=== PATIENT | male | born 1940 | race Caucasian/White ===

== ENCOUNTER 2022-05-25 14:11 | Inpatient (IN) ==
[2022-05-25] MEDS ORDERED: IOPAMIDOL 100 ML BOTTLE IV ONE (14:12)
[2022-05-25 14:25] LABS: POC Calcium, Ionized 1.23 (1.16-1.32); POC Creatinine 0.9 (0.6-1.2); POC Potassium 4.2 (3.3-5.1)
--- NOTE | 2022-05-25 14:39 | Emergency Department Note ---
Weakness HPI General Chief complaint: Stroke Symptoms Stated complaint: Stroke symptoms Time Seen by Provider: 05/25/22 14:28 Source: EMS Mode of arrival: EMS Limitations: altered mental status History of Present Illness HPI Narrative: Narrative: 82-year-old male with a past medical history of hypertension, neck radiculopathy on ibuprofen 1200 mg/day for 4 months presents with left facial droop, slurred speech and the left arm and leg weakness. Patient lives by himself. He was last day seen okay yesterday at 7 PM. EMT was called at 2:15 PM and patient was seen in ER at 2:24 PM. Patient's daughter stated that he has been having slurred speech for weeks and getting better on his own. In the ER patient has slurred speech but he reported appropriately to questioning. No headache dizziness chest pain abdominal pain nausea vomiting diarrhea fever chills. EKG consistent with normal sinus rhythm at 70, LAD, LAFB, Mild ST depression in 11, 111, V5-6, ST elevation in aVR. Related Data Home Medications Medication Instructions Recorded Confirmed amlodipine 10 mg tablet 10 mg PO QDAY 05/24/22 05/24/22 ibuprofen 200 mg capsule 400 mg PO Q8H 05/24/22 05/24/22 Allergies Allergy/AdvReac Type Severity Reaction Status Date / Time No Known Drug Allergies Allergy Verified 05/25/22 14:23 Review of Systems ROS ROS Narrative: Narrative: All systems ED: reviewed and negative except as stated. Constitutional: Reports as per HPI [facility] Narrative Patient History Narrative: Narrative: Medical/Surgical/Family History All Active Problems (Updated 05/25/22 @ 15:51 by Tre De Souza MD) CVA (cerebral vascular accident) (Acute) Leukocytosis (Acute) Decreased strength of upper extremity (Chronic) Medical History (Updated 05/25/22 @ 15:51 by Tre De Souza MD) Decreased strength of upper extremity Surgical History (Updated 05/24/22 @ 17:13 by Ashley Johnson) No history of previous surgery Family History (Updated 05/24/22 @ 17:13 by Ashley Johnson) Other No pertinent family history Social History Smoking Status: Never smoker Alcohol Intake Frequency: does not drink Substance Use: does not use Exam Narrative Narrative: Narrative: General Limitations: altered mental status General appearance: Present alert and other (Slurred speech, responds to questioning appropriately) Head Head: Present atraumatic, normocephalic and other (Left facial droop) Eye Eye: Present normal appearance Respiratory Respiratory: Present normal lung sounds bilaterally Cardiovascular Cardiovascular: Present regular rate, normal rhythm and normal heart sounds Adbominal Abdominal: Present soft and normal bowel sounds; Absent tenderness or organo megaly Extremities Extremities: Absent pedal edema, cyanosis or clubbing Neurological Neurological: Present alert; Absent other (Left arm and left leg weakness as compared to right side) Course Course Course Narrative: Stroke protocol was called which included CT head and CT angio of head and neck. Neurologist Dr. Pozo who felt that patient was beyond range of thrombolytic therapy. He will look at this CT scans and call back. COVID, troponin was ordered. Dr. Pozo called back and recommended that patient should be admitted for stroke work-up. Patient's high troponin is slightly high at 0.10 however T troponin is normal. Patient's WBC count is 18.8 with left shift. Lactic acid, blood culture were ordered. Chest x-ray ordered. Rocephin 1 g IV given. Will call hospitalist admit patient here. Talked to Hospitalist Dr. Rueda who accepted the patient Vital Signs Vital signs: Vital Signs Pulse Rate 65 05/25/22 14:14 Respiratory Rate 18 05/25/22 14:14 Blood Pressure 162/127 05/25/22 14:14 Pulse Oximetry (%) 97 05/25/22 14:14 Oxygen Delivery Method 05/25/22 14:14 Pulse Rate 72 05/25/22 17:16 Respiratory Rate 19 05/25/22 17:16 Blood Pressure 144/97 05/25/22 17:16 Pulse Oximetry (%) 98 05/25/22 17:16 Oxygen Delivery Method 05/25/22 14:14 [facility] MDM Narrative Medical decision making narrative: Narrative: Lab Data Result diagrams: 05/25/22 14:23 Labs: Lab Results 05/25/22 05/25/22 05/25/22 Range/Units 14:18 14:20 14:22 WBC (4.5-11.0) K/mcL RBC (4.63-6.08) M/mcL Hgb (13.7-17.5) g/dL Hct (40.1-51.0) % POC Hct 44.0 (41-55) MCV (80.0-100.0) fL MCH (26.0-34.0) pg MCHC (31.0-36.0) g/dL RDW (11.5-14.5) % Plt Count (140-440) K/mcL MPV (8.8-12.5) fL Immature Gran % (Auto) (0.0-0.5) % Neut % (Auto) (38.0-78.0) % Lymph % (Auto) (15.5-49.0) % Gonzales % (Auto) (1.0-12.0) % Eos % (Auto) (0.0-7.0) % Baso % (Auto) (0.0-2.0) % Lymph # (Auto) (1.50-4.80) K/mcL [place] # (Auto) (0.10-0.90) K/mcL Eos # (Auto) (0.00-0.70) K/mcL Baso # (Auto) (0.00-0.30) K/mcL Seg Neutrophils % (38-78) % Lymphocytes % (15-49) % Monocytes % (Manual) (1-12) % Immature Gran # (0.00-0.05) K/mcl Absolute Neutrophils (1.80-8.00) K/mcL Platelet Estimate (Normal) RBC Morphology (Normal) Anisocytosis (None Seen) POC PT (11.9-14.5) POC INR (0.8-1.2) APTT 30.5 (20.0-37.0) sec VBG Lactic Acid (0.5-2.0) mmol/L POC Sodium 140 (133-145) POC Potassium 4.2 (3.3-5.1) POC Chloride 104 (96-108) POC Total CO2 27.0 (22-30) POC BUN 23 H (6-20) POC Creatinine 0.9 (0.6-1.2) POC Glucose 113 H (70-105) POC WB Ioniz Calcium 1.23 (1.16-1.32) Total Bilirubin (0.1-1.0) mg/dL Direct Bilirubin (0-0.3) mg/dL AST (<40) U/L ALT (<40) U/L Alkaline Phosphatase (39-117) U/L Troponin T (<0.03) ng/mL Total Protein (5.9-8.4) gm/dL Albumin (3.2-5.2) gm/dL Globulin (2.2-3.7) gm/dL Urine Color Urine Appearance (Clear) Urine pH (5.0-9.0) Ur Specific [place] (1.000-1.035) Urine Protein (Negative) mg/dL Urine Glucose (UA) (Negative) mg/dL Urine Ketones (Negative) mg/dL Urine Occult Blood (Negative) kylah/mcL Urine Nitrate (Negative) Urine Bilirubin (Negative) mg/dL Urine Urobilinogen mg/dL Ur Leukocyte Esterase (Negative) /uL Urine RBC (0-1) /hpf Urine WBC (0-4) /hpf Ur Squamous Epith Cells (0-4) /hpf Urine Bacteria (0) /hpf Urine Mucus (None) /hpf Ur Culture Indicated? POC Troponin I 0.10 H (0.00-0.08) 05/25/22 05/25/22 05/25/22 Range/Units 14:22 14:22 14:22 WBC (4.5-11.0) K/mcL RBC (4.63-6.08) M/mcL Hgb (13.7-17.5) g/dL Hct (40.1-51.0) % POC Hct (41-55) MCV (80.0-100.0) fL MCH (26.0-34.0) pg MCHC (31.0-36.0) g/dL RDW (11.5-14.5) % Plt Count (140-440) K/mcL MPV (8.8-12.5) fL Immature Gran % (Auto) (0.0-0.5) % Neut % (Auto) (38.0-78.0) % Lymph % (Auto) (15.5-49.0) % Gonzales % (Auto) (1.0-12.0) % Eos % (Auto) (0.0-7.0) % Baso % (Auto) (0.0-2.0) % Lymph # (Auto) (1.50-4.80) K/mcL [place] # (Auto) (0.10-0.90) K/mcL Eos # (Auto) (0.00-0.70) K/mcL Baso # (Auto) (0.00-0.30) K/mcL Seg Neutrophils % 91 H (38-78) % Lymphocytes % 3 L (15-49) % Monocytes % (Manual) 7 (1-12) % Immature Gran # (0.00-0.05) K/mcl Absolute Neutrophils (1.80-8.00) K/mcL Platelet Estimate Decreased A (Normal) RBC Morphology Abnormal A (Normal) Anisocytosis 1+ A (None Seen) POC PT (11.9-14.5) POC INR (0.8-1.2) APTT (20.0-37.0) sec VBG Lactic Acid (0.5-2.0) mmol/L POC Sodium (133-145) POC Potassium (3.3-5.1) POC Chloride (96-108) POC Total CO2 (22-30) POC BUN (6-20) POC Creatinine (0.6-1.2) POC Glucose (70-105) POC WB Ioniz Calcium (1.16-1.32) Total Bilirubin 0.4 (0.1-1.0) mg/dL Direct Bilirubin < 0.2 (0-0.3) mg/dL AST < 5 (<40) U/L ALT < 5 (<40) U/L Alkaline Phosphatase < 5 L (39-117) U/L Troponin T 0.01 (<0.03) ng/mL Total Protein 6.0 (5.9-8.4) gm/dL Albumin < 0.2 L (3.2-5.2) gm/dL Globulin 5.8 H (2.2-3.7) gm/dL Urine Color Urine Appearance (Clear) Urine pH (5.0-9.0) Ur Specific [place] (1.000-1.035) Urine Protein (Negative) mg/dL Urine Glucose (UA) (Negative) mg/dL Urine Ketones (Negative) mg/dL Urine Occult Blood (Negative) kylah/mcL Urine Nitrate (Negative) Urine Bilirubin (Negative) mg/dL Urine Urobilinogen mg/dL Ur Leukocyte Esterase (Negative) /uL Urine RBC (0-1) /hpf Urine WBC (0-4) /hpf Ur Squamous Epith Cells (0-4) /hpf Urine Bacteria (0) /hpf Urine Mucus (None) /hpf Ur Culture Indicated? POC Troponin I (0.00-0.08) 05/25/22 05/25/22 05/25/22 Range/Units 14:23 15:06 16:00 WBC 18.8 H (4.5-11.0) K/mcL RBC 4.85 (4.63-6.08) M/mcL Hgb 14.1 (13.7-17.5) g/dL Hct 43.0 (40.1-51.0) % POC Hct (41-55) MCV 88.7 (80.0-100.0) fL MCH 29.1 (26.0-34.0) pg MCHC 32.8 (31.0-36.0) g/dL RDW 16.1 H (11.5-14.5) % Plt Count 445 H (140-440) K/mcL MPV 10.1 (8.8-12.5) fL Immature Gran % (Auto) 1.5 H (0.0-0.5) % Neut % (Auto) 82.6 H (38.0-78.0) % Lymph % (Auto) 4.9 L (15.5-49.0) % Gonzales % (Auto) 9.9 (1.0-12.0) % Eos % (Auto) 0.5 (0.0-7.0) % Baso % (Auto) 0.6 (0.0-2.0) % Lymph # (Auto) 0.93 L (1.50-4.80) K/mcL [place] # (Auto) 1.86 H (0.10-0.90) K/mcL Eos # (Auto) 0.09 (0.00-0.70) K/mcL Baso # (Auto) 0.11 (0.00-0.30) K/mcL Seg Neutrophils % (38-78) % Lymphocytes % (15-49) % Monocytes % (Manual) (1-12) % Immature Gran # 0.29 H (0.00-0.05) K/mcl Absolute Neutrophils 15.52 H (1.80-8.00) K/mcL Platelet Estimate (Normal) RBC Morphology (Normal) Anisocytosis (None Seen) POC PT 11.8 L (11.9-14.5) POC INR 1.0 (0.8-1.2) APTT (20.0-37.0) sec VBG Lactic Acid 1.2 (0.5-2.0) mmol/L POC Sodium (133-145) POC Potassium (3.3-5.1) POC Chloride (96-108) POC Total CO2 (22-30) POC BUN (6-20) POC Creatinine (0.6-1.2) POC Glucose (70-105) POC WB Ioniz Calcium (1.16-1.32) Total Bilirubin (0.1-1.0) mg/dL Direct Bilirubin (0-0.3) mg/dL AST (<40) U/L ALT (<40) U/L Alkaline Phosphatase (39-117) U/L Troponin T (<0.03) ng/mL Total Protein (5.9-8.4) gm/dL Albumin (3.2-5.2) gm/dL Globulin (2.2-3.7) gm/dL Urine Color Urine Appearance (Clear) Urine pH (5.0-9.0) Ur Specific [place] (1.000-1.035) Urine Protein (Negative) mg/dL Urine Glucose (UA) (Negative) mg/dL Urine Ketones (Negative) mg/dL Urine Occult Blood (Negative) kylah/mcL Urine Nitrate (Negative) Urine Bilirubin (Negative) mg/dL Urine Urobilinogen mg/dL Ur Leukocyte Esterase (Negative) /uL Urine RBC (0-1) /hpf Urine WBC (0-4) /hpf Ur Squamous Epith Cells (0-4) /hpf Urine Bacteria (0) /hpf Urine Mucus (None) /hpf Ur Culture Indicated? POC Troponin I (0.00-0.08) 05/25/22 Range/Units 16:24 WBC (4.5-11.0) K/mcL RBC (4.63-6.08) M/mcL Hgb (13.7-17.5) g/dL Hct (40.1-51.0) % POC Hct (41-55) MCV (80.0-100.0) fL MCH (26.0-34.0) pg MCHC (31.0-36.0) g/dL RDW (11.5-14.5) % Plt Count (140-440) K/mcL MPV (8.8-12.5) fL Immature Gran % (Auto) (0.0-0.5) % Neut % (Auto) (38.0-78.0) % Lymph % (Auto) (15.5-49.0) % Gonzales % (Auto) (1.0-12.0) % Eos % (Auto) (0.0-7.0) % Baso % (Auto) (0.0-2.0) % Lymph # (Auto) (1.50-4.80) K/mcL [place] # (Auto) (0.10-0.90) K/mcL Eos # (Auto) (0.00-0.70) K/mcL Baso # (Auto) (0.00-0.30) K/mcL Seg Neutrophils % (38-78) % Lymphocytes % (15-49) % Monocytes % (Manual) (1-12) % Immature Gran # (0.00-0.05) K/mcl Absolute Neutrophils (1.80-8.00) K/mcL Platelet Estimate (Normal) RBC Morphology (Normal) Anisocytosis (None Seen) POC PT (11.9-14.5) POC INR (0.8-1.2) APTT (20.0-37.0) sec VBG Lactic Acid (0.5-2.0) mmol/L POC Sodium (133-145) POC Potassium (3.3-5.1) POC Chloride (96-108) POC Total CO2 (22-30) POC BUN (6-20) POC Creatinine (0.6-1.2) POC Glucose (70-105) POC WB Ioniz Calcium (1.16-1.32) Total Bilirubin (0.1-1.0) mg/dL Direct Bilirubin (0-0.3) mg/dL AST (<40) U/L ALT (<40) U/L Alkaline Phosphatase (39-117) U/L Troponin T (<0.03) ng/mL Total Protein (5.9-8.4) gm/dL Albumin (3.2-5.2) gm/dL Globulin (2.2-3.7) gm/dL Urine Color Yellow Urine Appearance Sl cloudy A (Clear) Urine pH 6.0 (5.0-9.0) Ur Specific [place] 1.025 (1.000-1.035) Urine Protein 30 A (Negative) mg/dL Urine Glucose (UA) Negative (Negative) mg/dL Urine Ketones 15 A (Negative) mg/dL Urine Occult Blood Large A (Negative) kylah/mcL Urine Nitrate Negative (Negative) Urine Bilirubin Negative (Negative) mg/dL Urine Urobilinogen Normal mg/dL Ur Leukocyte Esterase Negative (Negative) /uL Urine RBC > 182 H (0-1) /hpf Urine WBC 3 (0-4) /hpf Ur Squamous Epith Cells 0 (0-4) /hpf Urine Bacteria None (0) /hpf Urine Mucus Many A (None) /hpf Ur Culture Indicated? No POC Troponin I (0.00-0.08) ED POC Tests ED POC Tests: JAMIE - SARS Antigen Negative Discharge Plan Patient/Caregiver Discharge Instructions Pt seen by [facility]NER/PA only: No Clinical Impression: CVA (cerebral vascular accident), Leukocytosis Patient Disposition: Xfer As Inpt ([facility]) Follow up with: Alejandro Carr DO [Primary Care Provider] - Prescriptions: No Action amlodipine 10 mg tablet 10 mg PO QDAY ibuprofen 200 mg capsule 400 mg PO Q8H
--- NOTE | 2022-05-25 14:41 | Cat Scan Report ---
INDICATION: Neuro Deficit/acute stroke COMPARISON: None. TECHNIQUE: Axial noncontrast-enhanced images through the brain. Sagittally and coronally reformatted images. FINDINGS: Cerebral hemispheres:No acute intracranial hemorrhage. No intra-axial hematoma. There is cerebral atrophy with enlargement superficial subarachnoid spaces and ventricles for age. There is a 5 mm right thalamic lacunar infarction. There is a 5 mm lacunar infarction within the left frontal lobe. There is white matter abnormality consistent with small vessel ischemic change. There is low density in the posterior left parietal lobe consistent with watershed type infarction. This is not acute. Examination is abnormal for age. Clinical correlation for history of hypertension or diabetes recommended. Brainstem and cerebellum:No intra-axial abnormality Extra-axial:No acute hemorrhage. No subdural or epidural hematoma. No subarachnoid hemorrhage. Basilar cisterns are normal Calvarial:No calvarial fracture. No lytic lesion Temporal bones are negative. No destructive lesions Soft tissue, orbits, sinuses:Orbits and visualized facial soft tissues and paranasal sinuses are negative IMPRESSION: 1. No acute intracranial hemorrhage 2. Right thalamic and left frontal lacunar infarctions 3. Focal low-density abnormality consistent with nonacute watershed infarction in the posterior left parietal lobe 4. Cerebral atrophy. White matter abnormality consistent with small vessel ischemic change. Clinical correlation for diabetes or hypertension recommended The exam was performed using radiation dose optimization techniques including, but not limited to, automated exposure control, adjustment of the mA and/or kV according to patient size and use of iterative reconstruction technique. Interpreted and Authenticated by: Alejandro Ramos 05/25/22
[2022-05-25 15:02] LABS: Basophils # (Auto) 0.11 K/mcL (0.00-0.30); Basophils % (Auto) 0.6 % (0.0-2.0); Eosinophils # (Auto) 0.09 K/mcL (0.00-0.70); Eosinophils % (Auto) 0.5 % (0.0-7.0); Hemoglobin 14.1 g/dL (13.7-17.5); Lymphocytes # (Auto) 0.93 K/mcL (1.50-4.80); Lymphocytes % (Auto) 4.9 % (15.5-49.0); Mean Cell Volume 88.7 fL (80.0-100.0); Mean Corpuscular HGB Conc 32.8 g/dL (31.0-36.0); Mean Platelet Volume 10.1 fL (8.8-12.5); Monocytes # (Auto) 1.86 K/mcL (0.10-0.90); Monocytes % (Auto) 9.9 % (1.0-12.0); Neutrophils % (Auto) 82.6 % (38.0-78.0); Platelet Count 445 K/mcL (140-440); RBC 4.85 M/mcL (4.63-6.08); Red Cell Distribution Width 16.1 % (11.5-14.5); WBC 18.8 K/mcL (4.5-11.0)
[2022-05-25 15:09] LABS: POC Pro Time 11.8 (11.9-14.5)
--- NOTE | 2022-05-25 15:27 | Cat Scan Report ---
INDICATION: stroke symptoms COMPARISON: Brain CT scan dated 05/25/2022 TECHNIQUE: Axial images were obtained through the upper chest, neck, and head during arterial phase. MIP and CPR reformatted images. 80ml Isovue 370 injected intravenously. FINDINGS: AORTIC ARCH:Calcified atherosclerotic plaque. Origins of the left subclavian artery, left vertebral artery, left common carotid artery, innominate artery, right common carotid artery, right subclavian artery, right vertebral artery are negative. No origin stenosis. CAROTID ARTERIES:Right: Right common carotid artery is negative. No stenosis or occlusion. Mild noncalcified plaque at the origin of the right internal carotid artery. No significant stenosis or evidence for ulceration. Right internal carotid artery is otherwise negative. No stenosis or occlusion. No fibromuscular dysplasia or dissection. Left: Left common carotid artery is negative. No stenosis or occlusion Mild calcified and noncalcified plaque at the origin of left internal carotid artery. No significant stenosis. No evidence for ulceration. Left internal carotid artery is otherwise negative. There is no stenosis or occlusion. No dissection or evidence for fibromuscular dysplasia VERTEBRAL ARTERIES:Vertebral arteries are patent without stenosis or occlusion [place]:[Cavernous and supraclinoid internal carotid arteries are negative. No significant stenosis or occlusion. M1 segments of the middle cerebral arteries and A1 segments of the anterior cerebral arteries are negative. Intracranial vertebral arteries are patent. There is focal narrowing of the mid basilar artery. There is luminal irregularity and 50% diameter stenosis. Findings may be due to atherosclerotic plaque or localized dissection. Posterior cerebral arteries and superior cerebellar arteries are negative] INTRACRANIAL CIRCULATION:No intracranial branch occlusion. No arteriovenous malformation or aneurysm No dural sinus occlusion UPPER CHEST:No pulmonary parenchymal mass or focal infiltrate. Superior mediastinum is negative. Main pulmonary artery measures 3.9 cm in cross-sectional diameter. This is enlarging consistent with pulmonary arterial hypertension. NECK:No solid or cystic soft tissue mass. No pathologic lymphadenopathy. There is multilevel degenerative disc disease BRAIN:No acute intracranial hemorrhage. No focal attenuation abnormalities or pathologic contrast enhancement. IMPRESSION: 1. Irregular abnormality in the mid basilar artery with luminal narrowing and 50% diameter stenosis. Findings there is considered to atherosclerotic disease or dissection. 2. Mild plaque in the proximal internal carotid artery bilaterally. No hemodynamically significant stenosis. There is no dissection. 3. Enlarged main pulmonary artery consistent with pulmonary arterial hypertension 4. The emergency room was called with these results, 05/25/2022, 1515 The exam was performed using radiation dose optimization techniques including, but not limited to, automated exposure control, adjustment of the mA and/or kV according to patient size and use of iterative reconstruction technique. Interpreted and Authenticated by: Alejandro Ramos 05/25/22
[2022-05-25 15:29] LABS: ALT/SGPT < 5 U/L (<40); AST/SGOT < 5 U/L (<40); Albumin < 0.2 gm/dL (3.2-5.2); Alkaline Phosphatase < 5 U/L (39-117); Bilirubin,Direct < 0.2 mg/dL (0-0.3); Bilirubin,Total 0.4 mg/dL (0.1-1.0); Globulin 5.8 gm/dL (2.2-3.7)
[2022-05-25] MEDS ORDERED: cefTRIAXone 1 GM VIAL IV ONE (15:47)
--- NOTE | 2022-05-25 16:02 | XRay Report ---
INDICATION: elevated white count TECHNIQUE: AP portable semiupright chest x-ray COMPARISON: None FINDINGS: Lungs:Lungs are negative. No focal pulmonary parenchymal infiltrate or mass Heart, vascular:No significant cardiomegaly. Pulmonary vascularity is normal. No pulmonary edema or pulmonary congestion Mediastinum, manda:No mediastinal widening. No hilar mass Pleura:No pleural fluid. No pleural-based mass or calcification Skeletal:Negative. IMPRESSION: Negative AP chest x-ray. No no focal infiltrate Interpreted and Authenticated by: Alejandro Ramos 05/25/22
--- NOTE | 2022-05-25 16:23 | Internal Med History&Physical ---
HPI History of Present Illness Patient information: Note initiated : 05/25/22 at 4:23 pm Service Date, if different from initiated Date: [] Patient: Farhad Hortno 82 y/o M admitted on for Stroke symptoms. Chief Complaint: [] History of present illness: Mr. Horton is a 82 year old M Presents the ED with left-sided weakness and left facial droop and slurred speech although sounds like the patient has had slurred speech. Last known normal at 9 AM this morning. Patient also fell out of bed this morning. Patient is a poor historian given his lack of speech and most history obtained from family and chart. Telestroke was contacted who reviewed CTA head/neck. Patient out of window and recommendation stroke to treat conservatively and continue stroke work-up.. Per the family he was complaining of some neck and arm pain for 5 months ago and he had weakness in his right hand which is improved overall but does wax and wane. Family also said that 3-4l days ago he said he had some vertigo and slurring while at [facility] and the patient is told family that he has had some slurring from time to time. CTA head and neck showed some old stroke but nothing acute. In the ED was found to be hypertensive. He also leukocytosis and an elevated BU N to creatinine ratio. Urinalysis pending. Antibiotics also given because of leukocytosis and urinalysis was ordered blood cultures. EKG sinus. Review of Systems: Pertinent positives as above except for some mild nausea. Denies headache/fever/chills/vomiting/chest or abdominal pain/cough/dyspnea/diarrhea. Remaining 10 point review of system reviewed negative PFSH PFSH All Active Problems (Updated 05/25/22 @ 15:51 by Tre De Souza MD) CVA (cerebral vascular accident) (Acute) Leukocytosis (Acute) Decreased strength of upper extremity (Chronic) Medical History (Updated 05/25/22 @ 15:51 by Tre De Souza MD) Decreased strength of upper extremity Surgical History (Updated 05/24/22 @ 17:13 by Ashley Johnson) No history of previous surgery Family History (Updated 05/24/22 @ 17:13 by Ashley Johnson) Other No pertinent family history Social History (Updated 05/24/22 @ 17:14 by Ashley Johnson) marital status: occupational status: retired smoking status: Never smoker alcohol intake frequency: does not drink substance use type: does not use MEDS/ALLERGIES Home Medications and Allergies Home Medications Medication Instructions Recorded Confirmed Type amlodipine 10 mg tablet 10 mg PO QDAY 05/24/22 05/24/22 History ibuprofen 200 mg capsule 400 mg PO Q8H 05/24/22 05/24/22 History Allergies Allergy/AdvReac Type Severity Reaction Status Date / Time No Known Drug Allergies Allergy Verified 05/25/22 14:23 EXAM Constitutional Vitals: Pulse Resp BP Pulse Ox O2 Del Method 69 14 151/85 97 05/25/22 15:46 05/25/22 15:46 05/25/22 15:46 05/25/22 15:46 05/25/22 14:14 Exam: General: Alert, Awake, No acute Distress Eyes/N/T: Patient has a conjugate gaze to the right, PERRL Head/Neck: neck supple, normocephalic atraumatic CV: RRR, No murmurs, normal s1/s2 Pulm: Clear b/l, no wheezing/rhonchi/rales Abd: soft, nontender, +BS x4 Ext: no clubbing/cyanosis/edema Neuro: Alert, left-sided hemiparesis Arm>Leg, face symmetrical, conjugate gaze to the right sensations intact b/l upper/lower, speech clear but slow to speech and difficult in expressing himself. Skin: warm/dry DATA Data Completed and Pending Labs: Labs from last 24 hours 05/25/22 05/25/22 05/25/22 16:00 15:06 14:23 WBC 18.8 H RBC 4.85 Hgb 14.1 Hct 43.0 POC Hct MCV 88.7 MCH 29.1 MCHC 32.8 RDW 16.1 H Plt Count 445 H MPV 10.1 Immature Gran % (Auto) 1.5 H Neut % (Auto) 82.6 H Lymph % (Auto) 4.9 L Milam % (Auto) 9.9 Eos % (Auto) 0.5 Baso % (Auto) 0.6 Lymph # (Auto) 0.93 L Milam # (Auto) 1.86 H Eos # (Auto) 0.09 Baso # (Auto) 0.11 Immature Gran # 0.29 H Absolute Neutrophils 15.52 H POC PT 11.8 L POC INR 1.0 APTT VBG Lactic Acid Pending POC Sodium POC Potassium POC Chloride POC Total CO2 POC BUN POC Creatinine POC Glucose POC WB Ioniz Calcium Total Bilirubin Direct Bilirubin AST ALT Alkaline Phosphatase Troponin T Total Protein Albumin Globulin POC Troponin I 05/25/22 05/25/22 05/25/22 14:22 14:22 14:22 WBC RBC Hgb Hct POC Hct MCV MCH MCHC RDW Plt Count MPV Immature Gran % (Auto) Neut % (Auto) Lymph % (Auto) Milam % (Auto) Eos % (Auto) Baso % (Auto) Lymph # (Auto) Milam # (Auto) Eos # (Auto) Baso # (Auto) Immature Gran # Absolute Neutrophils POC PT POC INR APTT 30.5 VBG Lactic Acid POC Sodium POC Potassium POC Chloride POC Total CO2 POC BUN POC Creatinine POC Glucose POC WB Ioniz Calcium Total Bilirubin 0.4 Direct Bilirubin < 0.2 AST < 5 ALT < 5 Alkaline Phosphatase < 5 L Troponin T 0.01 Total Protein 6.0 Albumin < 0.2 L Globulin 5.8 H POC Troponin I 05/25/22 05/25/22 14:20 14:18 WBC RBC Hgb Hct POC Hct 44.0 MCV MCH MCHC RDW Plt Count MPV Immature Gran % (Auto) Neut % (Auto) Lymph % (Auto) Milam % (Auto) Eos % (Auto) Baso % (Auto) Lymph # (Auto) Milam # (Auto) Eos # (Auto) Baso # (Auto) Immature Gran # Absolute Neutrophils POC PT POC INR APTT VBG Lactic Acid POC Sodium 140 POC Potassium 4.2 POC Chloride 104 POC Total CO2 27.0 POC BUN 23 H POC Creatinine 0.9 POC Glucose 113 H POC WB Ioniz Calcium 1.23 Total Bilirubin Direct Bilirubin AST ALT Alkaline Phosphatase Troponin T Total Protein Albumin Globulin POC Troponin I 0.10 H A/P Narrative A/P Narrative: A: *Stroke-like symptoms > Left hemiparesis, right conjugate gaze: -ABCD=6 -basilar artery narrowing, imaging read by stroke neurologist *HTN: on norvasc *Volume depletion: *Leukocytosis: w/u pending *chr neck pain: 6 tabs of ibuprofen per day per family P: -DAPT/Statin -IVF -Permissive hypertension 24-48 hours -hold Norvasc for now -lipid panel -echo pending -Neurochecks -UA/BC lactate pending, f/u cbc -pt/ot/ST -Home medication reconciliation -CM for placement needs -ppx: lovenox / ppi Time Spent With Patient Time: Total time spent is greater than 50% in coordination of care (as documented) at patient's floor/unit and/or counseling patient: Total time spent with greater than 50% in coordination of care (as documented) at patient's floor/unit and/or counseling patient:: Greater than 70 minutes QUALITY Stroke Symptom Onset Unknown: No
[2022-05-25] MEDS ORDERED: CLOPIDOGREL 300 MG TABLET PO ONE (16:44)
[2022-05-25] MEDS ORDERED: ASPIRIN 81 MG TAB.CHEW CHEWED ONE (16:44)
[2022-05-25 17:04] LABS: Anisocytosis 1+ (None Seen); Lymphocytes % 3 % (15-49); Monocytes % (Manual) 7 % (1-12); Platelet Estimate DECREASED (Normal); RBC Morphology ABNORMAL (Normal); Segmented Neutrophils % 91 % (38-78)
[2022-05-25 17:17] LABS: Appearance,Urine SL CLOUDY (Clear); Bilirubin,Urine NEGATIVE (Negative); Color,Urine YELLOW; Culture Indicated,Urine No; Glucose,Urine (UA) NEGATIVE (Negative); Ketones,Urine 15 mg/dL (Negative); Leukocyte Esterase,Urine NEGATIVE /uL (Negative); Mucus,Urine MANY /hpf; Nitrate,Urine NEGATIVE (Negative); Protein,Urine 30 mg/dL (Negative); Specific Gravity,Urine 1.025 (1.000-1.035); Urine Blood LARGE ery/mcL (Negative); Urine RBC > 182 /hpf (0-1); Urine Squamous Epithelial Cell 0 /hpf (0-4); Urine WBC 3 /hpf (0-4); Urobilinogen,Urine Normal
[2022-05-25] MEDS ORDERED: ASPIRIN 300 MG RECTAL SUPPOSITORY PR ONE (18:21)
[2022-05-25] MEDS ORDERED: POTASSIUM CHLORIDE 20 MEQ TABLET PO PRN ×2 (18:44)
[2022-05-25] MEDS ORDERED: IPRATROPIUM/ALBUTEROL 3 ML AMPUL.NEB NEB PRN (18:44)
[2022-05-25] MEDS ORDERED: POTASSIUM CHLORIDE 40 MEQ in DEXTROSE 5% IN WATER 500 ML IV PRN (18:44)
[2022-05-25] MEDS ORDERED: LABETALOL 5 MG/ML ML IV PRN (18:44)
[2022-05-25] MEDS ORDERED: ACETAMINOPHEN 325 MG TABLET PO PRN (18:44)
[2022-05-25] MEDS ORDERED: SENNOSIDES 1 TABLET PO PRN (18:44)
[2022-05-25] MEDS ORDERED: MAGNESIUM SULFATE 2 GM/50 ML BAG IV PRN (18:44)
[2022-05-25] MEDS ORDERED: POLYETHYLENE GLYCOL 3350 17 GM PACKET PO PRN (18:44)
[2022-05-25] MEDS ORDERED: HYDROcodone/APAP 5/325MG TABLET PO PRN (18:44)
[2022-05-25] MEDS ORDERED: ONDANSETRON 4 MG/2 ML VIAL IV PRN (18:44)
[2022-05-25 19:17] LABS: C-Reactive Protein < 0.30 mg/dL (0.03-0.80); HDL Cholesterol 32 mg/dL (>40); LDL Cholesterol,Calculated 122 mg/dL (<100); Non-HDL Cholesterol 147 mg/dL (<130); Triglycerides 128 mg/dL (<150)
[2022-05-25] MEDS: 0.9 % SODIUM CHLORIDE 10 ML SYRINGE IV SCH (20:00)
[2022-05-25] MEDS: 0.9 % SODIUM CHLORIDE 1,000 ML IV SCH (20:00)
[2022-05-25] MEDS ORDERED: PANTOPRAZOLE 40 MG VIAL IV ONE (20:03)
[2022-05-25] MEDS: PANTOPRAZOLE 40 MG VIAL IV SCH (20:12)
[2022-05-25] MEDS: DOCUSATE SODIUM 100 MG CAPSULE PO SCH (21:23)
[2022-05-25] MEDS: ATORVASTATIN 40 MG TABLET PO SCH (21:23)
[2022-05-26] MEDS: 0.9 % SODIUM CHLORIDE 10 ML SYRINGE IV SCH ×3 (06:36→22:15)
[2022-05-26] MEDS: 0.9 % SODIUM CHLORIDE 1,000 ML IV SCH (06:37)
[2022-05-26 07:59] LABS: Basophils # (Auto) 0.04 K/mcL (0.00-0.30); Basophils % (Auto) 0.4 % (0.0-2.0); Hematocrit 39.1 % (40.1-51.0); Hemoglobin 12.4 g/dL (13.7-17.5); Lymphocytes # (Auto) 1.57 K/mcL (1.50-4.80); Lymphocytes % (Auto) 15.4 % (15.5-49.0); Mean Cell Volume 90.7 fL (80.0-100.0); Mean Corpuscular HGB Conc 31.7 g/dL (31.0-36.0); Mean Platelet Volume 10.1 fL (8.8-12.5); Monocytes % (Auto) 10.8 % (1.0-12.0); Neutrophils % (Auto) 71.2 % (38.0-78.0); Platelet Count 401 K/mcL (140-440); RBC 4.31 M/mcL (4.63-6.08); Red Cell Distribution Width 16.7 % (11.5-14.5); WBC 10.2 K/mcL (4.5-11.0)
--- NOTE | 2022-05-26 08:10 | Internal Med Progress Note ---
SUBJECTIVE Subjective Patient information: Note initiated : 05/26/22 at 8:03 am Service Date, if different from initiated Date: [] Patient: Farhad Horton 82 y/o M admitted on 05/25/22 for Stroke symptoms-Stroke Acute. Chief Complaint: [] Interval history: History of present illness: Mr. Horton is a 82 year old M Presents the ED with left-sided weakness and left facial droop and slurred speech although sounds like the patient has had slurred speech. Last known normal at 9 AM this morning. Patient also fell out of bed this morning. Patient is a poor historian given his lack of speech and most history obtained from family and chart. Telestroke was contacted who reviewed CTA head/neck. Patient out of window and recommendation stroke to treat conservatively and continue stroke work-up.. Per the family he was complaining of some neck and arm pain for 5 months ago and he had weakness in his right hand which is improved overall but does wax and wane. Family also said that 3-4l days ago he said he had some vertigo and slurring while at [facility] and the patient is told family that he has had some slurring from time to time. CTA head and neck showed some old stroke but nothing acute. In the ED was found to be hypertensive. He also leukocytosis and an elevated BUN to creatinine ratio. Urinalysis pending. Antibiotics also given because of leukocytosis and urinalysis was ordered blood cultures. EKG sinus. 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 No concern from stroke neurologist for transfer. Patient today has some mild increased movement of his left arm and leg. He is speaking more but slurred. He will gazing to the right. Awaiting speech therapy evaluation. Leukocytosis resolved. Urinalysis not concerning for infection. Chest x-ray unremarkable. Continue dual antiplatelets and statin. Echo pending. PT OT. Review of Systems: denies headache/fever/chills/nausea/vomiting/chest or abdominal pain/cough/dyspnea/diarrhea. Otherwise see above. Constitutional Vitals: Vital Signs Temp Pulse Resp BP Pulse Ox O2 Del Method O2 Flow Rate 99.2 F H 60 16 119/69 97 0 05/26/22 04:01 05/26/22 06:01 05/26/22 06:01 05/26/22 06:01 05/26/22 06:01 05/26/22 06:01 05/25/22 21:01 Period Temp Pulse Resp BP Sys/Gallagher Pulse Ox O2 Del Method O2 Flow Rate Last 24 Hr 98.7 F-100.1 F 59-77 11- 119-173/69-127 96-99 Room Air-Room Air 0 Intake and Output 05/25/22 05/26/22 05/26/22 19:59 03:59 11:59 Intake Total 0 1000 Output Total 150 1 Balance -150 999 Weight 82.735 kg Intake & Output: Intake & Output 05/25/22 05/26/22 05/26/22 19:59 03:59 11:59 Intake Total 0 1000 Output Total 150 1 Balance -150 999 Weight 82.735 kg Intake: IV 1000 Sodium Chloride 0.9% 1,000 ml @ 1000 100 mls/hr IV .Q10H PAUL Rx#: [id number] Oral 0 Output: Void Amount 150 # of times incontinent of urine 1 Other: Urine Appearance Clear Urine Color Dark Yellow Urine Odor Normal Exam: General: Alert, Awake, No acute Distress Eyes/N/T: Patient has a conjugate gaze to the right, Head/Neck: neck supple, CV: RRR, No murmurs, Pulm: Clear b/l, no wheezing/rhonchi/rales Abd: soft, nontender, +BS x4 Ext: no clubbing/cyanosis/edema Neuro: Alert, left-sided hemiparesis Arm>Leg slightly improved from yesterday., face symmetrical, conjugate gaze to the right, dysarthria present. Skin: warm/dry OBJ DATA Labs CBC & Chem 7: 05/26/22 05:53 05/26/22 05:53 Labs: Abnormal Lab Results 05/26/22 05/25/22 05/25/22 05:53 18:44 16:24 WBC RBC 4.31 L Hgb 12.4 L Hct 39.1 L RDW 16.7 H Plt Count Immature Gran % (Auto) 1.2 H Neut % (Auto) Lymph % (Auto) 15.4 L Lymph # (Auto) Calhoun # (Auto) 1.10 H Seg Neutrophils % Lymphocytes % Immature Gran # 0.12 H Absolute Neutrophils Platelet Estimate RBC Morphology Anisocytosis POC PT POC BUN POC Glucose Alkaline Phosphatase Albumin Globulin LDL Cholesterol, Calc 122 H Non-HDL Cholesterol 147 H HDL Cholesterol 32 L Urine Appearance Sl cloudy A Urine Protein 30 A Urine Ketones 15 A Urine Occult Blood Large A Urine RBC > 182 H Urine Mucus Many A POC Troponin I 05/25/22 05/25/22 05/25/22 15:06 14:23 14:22 WBC 18.8 H RBC Hgb Hct RDW 16.1 H Plt Count 445 H Immature Gran % (Auto) 1.5 H Neut % (Auto) 82.6 H Lymph % (Auto) 4.9 L Lymph # (Auto) 0.93 L Calhoun # (Auto) 1.86 H Seg Neutrophils % 91 H Lymphocytes % 3 L Immature Gran # 0.29 H Absolute Neutrophils 15.52 H Platelet Estimate Decreased A RBC Morphology Abnormal A Anisocytosis 1+ A POC PT 11.8 L POC BUN POC Glucose Alkaline Phosphatase Albumin Globulin LDL Cholesterol, Calc Non-HDL Cholesterol HDL Cholesterol Urine Appearance Urine Protein Urine Ketones Urine Occult Blood Urine RBC Urine Mucus POC Troponin I 05/25/22 05/25/22 05/25/22 14:22 14:20 14:18 WBC RBC Hgb Hct RDW Plt Count Immature Gran % (Auto) Neut % (Auto) Lymph % (Auto) Lymph # (Auto) Calhoun # (Auto) Seg Neutrophils % Lymphocytes % Immature Gran # Absolute Neutrophils Platelet Estimate RBC Morphology Anisocytosis POC PT POC BUN 23 H POC Glucose 113 H Alkaline Phosphatase < 5 L Albumin < 0.2 L Globulin 5.8 H LDL Cholesterol, Calc Non-HDL Cholesterol HDL Cholesterol Urine Appearance Urine Protein Urine Ketones Urine Occult Blood Urine RBC Urine Mucus POC Troponin I 0.10 H Meds: Medications Acetaminophen (Acetaminophen 325 Mg Tablet) 650 mg PO Q6HP PRN; Protocol PRN Reason: Per Pain Protocol/Fever > 101 Hydrocodone Bitart/Acetaminophen (Hydrocodone/Apap 5/325mg Tablet) 1 tab PO Q4HP PRN PRN Reason: PAIN LEVEL 3-6 Albuterol/Ipratropium (Ipratropium/Albuterol 3 Ml Ampul.Neb) 3 ml NEB Q4HP PRN PRN Reason: Shortness Of Breath Aspirin (Aspirin 325 Mg Enteric Coated Tablet) 81 mg PO DAILY [facility] Atorvastatin Calcium (Atorvastatin 40 Mg Tablet) 80 mg PO HS PAUL Last Admin: 05/25/22 21:23 Dose: Not Given Clopidogrel Bisulfate (Clopidogrel 75 Mg Tablet) 75 mg PO DAILY [facility] Docusate Sodium (Docusate Sodium 100 Mg Capsule) 100 mg PO BID [facility] Last Admin: 05/25/22 21:23 Dose: Not Given Enoxaparin Sodium (Enoxaparin 40 Mg/0.4 Ml Syringe) 40 mg SQ DAILY [facility] Potassium Chloride 40 meq/ (Dextrose) 520 mls @ 130 mls/hr IV UD PRN PRN Reason: Potassium < 3 Magnesium Sulfate (Magnesium Sulfate) 2 gm in 50 mls @ 50 mls/hr IV UD PRN PRN Reason: Magnesium </= 1.6 Sodium Chloride (Sodium Chloride 0.9%) 1,000 mls @ 100 mls/hr IV .Q10H [facility] Stop: 05/26/22 14:43 Last Admin: 05/26/22 06:37 Dose: 100 mls/hr Labetalol HCl (Labetalol 5 Mg/Ml Ml) 0 mg IV Q2HP PRN PRN Reason: Hypertension Ondansetron HCl (Ondansetron 4 Mg/2 Ml Vial) 4 mg IV Q4HP PRN PRN Reason: Nausea And Vomiting Pantoprazole Sodium (Pantoprazole 40 Mg Vial) 40 mg IV QAMAC [facility] Last Admin: 05/25/22 20:12 Dose: 40 mg Polyethylene Glycol (Polyethylene Glycol 3350 17 Gm Packet) 17 gm PO DAILYP PRN PRN Reason: Constipation Potassium Chloride (Potassium Chloride 20 Meq Tablet) 40 meq PO UD PRN PRN Reason: Potssium is 3-3.5 Potassium Chloride (Potassium Chloride 20 Meq Tablet) 40 meq PO UD PRN PRN Reason: Potassium < 3 Senna (Sennosides 1 Tablet) 2 tab PO DAILYP PRN PRN Reason: Constipation Sodium Chloride (0.9 % Sodium Chloride 10 Ml Syringe) 10 ml IV Q8 [facility] Last Admin: 05/26/22 06:36 Dose: Not Given A/P Narrative A/P Narrative: A: *Acute CVA (Mariela right sided, small left occipital && parietal) > Left hemiparesis, right conjugate gaze: -ABCD=6 -basilar artery narrowing, imaging read by stroke neurologist *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 No bandemia, Afebrile. UA/CXR unremarkable *chr neck pain: 6 tabs of ibuprofen per day per family P: -DAPT/Statin -IVF, npo until ST eval -Permissive hypertension 24-48 hours -hold Norvasc for now -echo pending -Neurochecks -BC pending -pt/ot/ST -CM for placement needs -ppx: lovenox / ppi Time Spent With Patient Time: Total time spent is greater than 50% in coordination of care (as documented) at patient's floor/unit and/or counseling patient: Total time spent with greater than 50% in coordination of care (as documented) at patient's floor/unit and/or counseling patient:: 35 - 50 minutes QUALITY Stroke Onset of Symptoms Date: 05/25/22 Onset of Symptoms Time: 00:00 Symptom Onset Unknown: Yes VTE Deep Vein Thrombosis/Pulmonary Embolism Present on Admission: No
[2022-05-26 08:23] LABS: ALT/SGPT 15 U/L (<40); AST/SGOT 27 U/L (<40); Albumin 3.7 gm/dL (3.2-5.2); Albumin/Globulin Ratio 1.6 (1.0-2.3); Alkaline Phosphatase 139 U/L (39-117); Bilirubin,Direct < 0.2 mg/dL (0-0.3); Bilirubin,Total 0.5 mg/dL (0.1-1.0); Blood Urea Nitrogen 18 mg/dL (8-23); Calcium 8.7 mg/dL (8.6-10.4); Carbon Dioxide 22 mmol/L (22-30); Chloride 104 mmol/L (96-108); Globulin 2.3 gm/dL (2.2-3.7); Glomerular Filtration Rate 69; Glucose 98 mg/dL (70-105); Lactate Dehydrogenase 412 U/L (135-225); Phosphorous 2.7 mg/dL (2.5-4.5); Triglycerides 106 mg/dL (<150); Uric Acid 5.2 mg/dL (2.5-8.0)
[2022-05-26] MEDS: PANTOPRAZOLE 40 MG VIAL IV SCH (08:34)
[2022-05-26] MEDS: ENOXAPARIN 40 MG/0.4 ML SYRINGE SQ SCH (08:35)
[2022-05-26] MEDS ORDERED: ASPIRIN 325 MG ENTERIC COATED TABLET PO SCH (09:00)
--- NOTE | 2022-05-26 09:58 | Magnetic Resonance Report ---
INDICATION: left hemiparesis, speech TECHNIQUE: Limited brain MRI scan. Axial diffusion weighted images. Axial FLAIR sequence. COMPARISON: Previous brain CT scan and CTA dated 05/25/2022 FINDINGS: Restricted diffusion within the gordy. This is predominantly right-sided although there is probably subtle restricted diffusion in the left side of the gordy. Clinical correlation for symptoms of lateral pontine syndrome or Eve Foix syndrome recommended. 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 Areas of restricted diffusion in the left occipital temporal junction region. Scattered small foci of restricted diffusion in the left parietal lobe and mid left temporal lobe. 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 No hemorrhagic abnormality. No focal hematoma. IMPRESSION: 1. 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 This is predominantly right-sided. Clinical correlation for symptoms of lateral pontine syndrome recommended 2. Small foci of restricted diffusion in the left occipital temporal junction and left parietal lobe. There may be a small focus of restricted diffusion in the mid left temporal lobe Interpreted and Authenticated by: Alejandro Ramos 05/26/22
[2022-05-26] MEDS: DOCUSATE SODIUM 100 MG CAPSULE PO SCH ×2 (10:15→22:15)
[2022-05-26] MEDS: CLOPIDOGREL 75 MG TABLET PO SCH (12:37)
[2022-05-26] MEDS: ASPIRIN 81 MG TAB.CHEW CHEWED SCH (12:37)
[2022-05-26] MEDS: ATORVASTATIN 40 MG TABLET PO SCH (22:15)
[2022-05-27] MEDS: 0.9 % SODIUM CHLORIDE 10 ML SYRINGE IV SCH ×3 (06:00→21:40)
--- NOTE | 2022-05-27 07:48 | Internal Med Progress Note ---
SUBJECTIVE Subjective Patient information: Note initiated : 05/27/22 at 7:45 am Service Date, if different from initiated Date: [] Patient: Farhad Horton 82 y/o M admitted on 05/26/22 for Stroke symptoms-Stroke Acute. Chief Complaint: [] Interval history: History of present illness: Mr. Horton is a 82 year old M Presents the ED with left-sided weakness and left facial droop and slurred speech although sounds like the patient has had slurred speech. Last known normal at 9 AM this morning. Patient also fell out of bed this morning. Patient is a poor historian given his lack of speech and most history obtained from family and chart. Telestroke was contacted who reviewed CTA head/neck. Patient out of window and recommendation stroke to treat conservatively and continue stroke work-up.. Per the family he was complaining of some neck and arm pain for 5 months ago and he had weakness in his right hand which is improved overall but does wax and wane. Family also said that 3-4l days ago he said he had some vertigo and slurring while at [facility] and the patient is told family that he has had some slurring from time to time. CTA head and neck showed some old stroke but nothing acute. In the ED was found to be hypertensive. He also leukocytosis and an elevated BUN to creatinine ratio. Urinalysis pending. Antibiotics also given because of leukocytosis and urinalysis was ordered blood cultures. EKG sinus. 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 No concern from stroke neurologist for transfer. Patient today has some mild increased movement of his left arm and leg. He is speaking more but slurred. He will gazing to the right. Awaiting speech therapy evaluation. Leukocytosis resolved. Urinalysis not concerning for infection. Chest x-ray unremarkable. Continue dual antiplatelets and statin. Echo pending. PT OT. 05/27 Patient showing improvement today. Seen by speech therapy and put on dysphagia diet. Patient speech still little bit slurred but more clear than it has been. Moving arm and leg more. Review of Systems: denies headache/fever/chills/nausea/vomiting/chest or abdominal pain/cough/dyspnea/diarrhea. Otherwise see above. Constitutional Vitals: Vital Signs Temp Pulse Resp BP Pulse Ox O2 Del Method O2 Flow Rate 97.5 F 61 19 150/88 99 0 05/27/22 04:40 05/27/22 06:01 05/27/22 06:01 05/27/22 02:01 05/27/22 06:01 05/27/22 04:40 05/25/22 21:01 Period Temp Pulse Resp BP Sys/Gallagher Pulse Ox O2 Del Method O2 Flow Rate Last 24 Hr 97.5 F-99.0 F 54-88 06-15 133-181/72-95 95-99 Room Air-Room Air Intake and Output 05/26/22 05/27/22 05/27/22 19:59 03:59 11:59 Intake Total 1100 Output Total 101 127 Balance 999 -127 Weight 83.234 kg Intake & Output: Intake & Output 05/26/22 05/27/22 05/27/22 19:59 03:59 11:59 Intake Total 1100 Output Total 101 127 Balance 999 -127 Weight 83.234 kg Intake: IV 1000 Sodium Chloride 0.9% 1,000 ml @ 1000 100 mls/hr IV .Q10H PAUL Rx#: [id number] Oral 100 Output: Void Amount 100 125 # of times incontinent of urine 1 2 Other: Percent of Meal Consumed 50% Urine Appearance Clear Clear Urine Color Dark Yellow Dark Heather # Voids 0 # Bowel Movements 0 # of times incontinent of 0 Bowels Exam: General: Alert, Awake, No acute Distress Eyes/N/T: Patient has a conjugate gaze to the right, Head/Neck: neck supple, CV: RRR, No murmurs, Pulm: Clear b/l, no wheezing/rhonchi/rales Abd: soft, nontender, +BS x4 Ext: no clubbing/cyanosis/edema Neuro: Alert, left-sided hemiparesis Arm>Leg slightly slowly improving, face symmetrical, conjugate gaze to the right, dysarthria present. Skin: warm/dry OBJ DATA Labs CBC & Chem 7: 05/26/22 05:53 05/26/22 05:53 Labs: Abnormal Lab Results 05/26/22 05/26/22 05/25/22 05:53 05:53 18:44 WBC RBC 4.31 L Hgb 12.4 L Hct 39.1 L RDW 16.7 H Plt Count Immature Gran % (Auto) 1.2 H Neut % (Auto) Lymph % (Auto) 15.4 L Lymph # (Auto) [place] # (Auto) 1.10 H Seg Neutrophils % Lymphocytes % Immature Gran # 0.12 H Absolute Neutrophils Platelet Estimate RBC Morphology Anisocytosis POC PT POC BUN POC Glucose Alkaline Phosphatase 139 H Lactate Dehydrogenase 412 H Albumin Globulin LDL Cholesterol, Calc 122 H Non-HDL Cholesterol 147 H HDL Cholesterol 32 L Urine Appearance Urine Protein Urine Ketones Urine Occult Blood Urine RBC Urine Mucus POC Troponin I 05/25/22 05/25/22 05/25/22 16:24 15:06 14:23 WBC 18.8 H RBC Hgb Hct RDW 16.1 H Plt Count 445 H Immature Gran % (Auto) 1.5 H Neut % (Auto) 82.6 H Lymph % (Auto) 4.9 L Lymph # (Auto) 0.93 L [place] # (Auto) 1.86 H Seg Neutrophils % Lymphocytes % Immature Gran # 0.29 H Absolute Neutrophils 15.52 H Platelet Estimate RBC Morphology Anisocytosis POC PT 11.8 L POC BUN POC Glucose Alkaline Phosphatase Lactate Dehydrogenase Albumin Globulin LDL Cholesterol, Calc Non-HDL Cholesterol HDL Cholesterol Urine Appearance Sl cloudy A Urine Protein 30 A Urine Ketones 15 A Urine Occult Blood Large A Urine RBC > 182 H Urine Mucus Many A POC Troponin I 05/25/22 05/25/22 05/25/22 14:22 14:22 14:20 WBC RBC Hgb Hct RDW Plt Count Immature Gran % (Auto) Neut % (Auto) Lymph % (Auto) Lymph # (Auto) [place] # (Auto) Seg Neutrophils % 91 H Lymphocytes % 3 L Immature Gran # Absolute Neutrophils Platelet Estimate Decreased A RBC Morphology Abnormal A Anisocytosis 1+ A POC PT POC BUN 23 H POC Glucose 113 H Alkaline Phosphatase < 5 L Lactate Dehydrogenase Albumin < 0.2 L Globulin 5.8 H LDL Cholesterol, Calc Non-HDL Cholesterol HDL Cholesterol Urine Appearance Urine Protein Urine Ketones Urine Occult Blood Urine RBC Urine Mucus POC Troponin I 05/25/22 14:18 WBC RBC Hgb Hct RDW Plt Count Immature Gran % (Auto) Neut % (Auto) Lymph % (Auto) Lymph # (Auto) [place] # (Auto) Seg Neutrophils % Lymphocytes % Immature Gran # Absolute Neutrophils Platelet Estimate RBC Morphology Anisocytosis POC PT POC BUN POC Glucose Alkaline Phosphatase Lactate Dehydrogenase Albumin Globulin LDL Cholesterol, Calc Non-HDL Cholesterol HDL Cholesterol Urine Appearance Urine Protein Urine Ketones Urine Occult Blood Urine RBC Urine Mucus POC Troponin I 0.10 H Meds: Medications Acetaminophen (Acetaminophen 325 Mg Tablet) 650 mg PO Q6HP PRN; Protocol PRN Reason: Per Pain Protocol/Fever > 101 Hydrocodone Bitart/Acetaminophen (Hydrocodone/Apap 5/325mg Tablet) 1 tab PO Q4HP PRN PRN Reason: PAIN LEVEL 3-6 Albuterol/Ipratropium (Ipratropium/Albuterol 3 Ml Ampul.Neb) 3 ml NEB Q4HP PRN PRN Reason: Shortness Of Breath Aspirin (Aspirin 81 Mg Tab.Chew) 81 mg CHEWED DAILY [facility] Last Admin: 05/26/22 12:37 Dose: 81 mg Atorvastatin Calcium (Atorvastatin 40 Mg Tablet) 80 mg PO HS [facility] Last Admin: 05/26/22 22:15 Dose: 80 mg Clopidogrel Bisulfate (Clopidogrel 75 Mg Tablet) 75 mg PO DAILY [facility] Last Admin: 05/26/22 12:37 Dose: 75 mg Docusate Sodium (Docusate Sodium 100 Mg Capsule) 100 mg PO BID [facility] Last Admin: 05/26/22 22:15 Dose: 100 mg Enoxaparin Sodium (Enoxaparin 40 Mg/0.4 Ml Syringe) 40 mg SQ DAILY [facility] Last Admin: 05/26/22 08:35 Dose: 40 mg Potassium Chloride 40 meq/ (Dextrose) 520 mls @ 130 mls/hr IV UD PRN PRN Reason: Potassium < 3 Magnesium Sulfate (Magnesium Sulfate) 2 gm in 50 mls @ 50 mls/hr IV UD PRN PRN Reason: Magnesium </= 1.6 Labetalol HCl (Labetalol 5 Mg/Ml Ml) 0 mg IV Q2HP PRN PRN Reason: Hypertension Ondansetron HCl (Ondansetron 4 Mg/2 Ml Vial) 4 mg IV Q4HP PRN PRN Reason: Nausea And Vomiting Pantoprazole Sodium (Pantoprazole 40 Mg Vial) 40 mg IV QAMAC [facility] Last Admin: 05/26/22 08:34 Dose: 40 mg Polyethylene Glycol (Polyethylene Glycol 3350 17 Gm Packet) 17 gm PO DAILYP PRN PRN Reason: Constipation Potassium Chloride (Potassium Chloride 20 Meq Tablet) 40 meq PO UD PRN PRN Reason: Potssium is 3-3.5 Potassium Chloride (Potassium Chloride 20 Meq Tablet) 40 meq PO UD PRN PRN Reason: Potassium < 3 Senna (Sennosides 1 Tablet) 2 tab PO DAILYP PRN PRN Reason: Constipation Sodium Chloride (0.9 % Sodium Chloride 10 Ml Syringe) 10 ml IV Q8 PAUL Last Admin: 05/27/22 06:00 Dose: 10 ml A/P Narrative A/P Narrative: A: *Acute CVA (Mariela right sided, small left occipital && parietal) > Left hemipa resis, right conjugate gaze: -ABCD=6 -basilar artery narrowing, imaging read by stroke neurologist -echo no thrombus, normal sinus ekg *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 No bandemia, Afebrile. UA/CXR unremarkable *chr neck pain: 6 tabs of ibuprofen per day per family P: -DAPT/Statin -dysphagia diet per ST -Permissive hypertension 24-48 hours -hold Norvasc for now, home meds clarified -Neurochecks -BC pending -pt/ot/ST -CM for placement needs -ppx: lovenox / ppi Time Spent With Patient Time: Total time spent is greater than 50% in coordination of care (as documented) at patient's floor/unit and/or counseling patient: Total time spent with greater than 50% in coordination of care (as documented) at patient's floor/unit and/or counseling patient:: 35 - 50 minutes QUALITY Stroke Onset of Symptoms Date: 05/25/22 Onset of Symptoms Time: 00:00 Symptom Onset Unknown: Yes VTE Deep Vein Thrombosis/Pulmonary Embolism Present on Admission: No
[2022-05-27] MEDS: PANTOPRAZOLE 40 MG VIAL IV SCH (08:09)
[2022-05-27] MEDS: ENOXAPARIN 40 MG/0.4 ML SYRINGE SQ SCH (08:29)
[2022-05-27] MEDS: CLOPIDOGREL 75 MG TABLET PO SCH (08:29)
[2022-05-27] MEDS: DOCUSATE SODIUM 100 MG CAPSULE PO SCH ×3 (08:29→21:40)
[2022-05-27] MEDS: ASPIRIN 81 MG TAB.CHEW CHEWED SCH (08:29)
--- NOTE | 2022-05-27 12:30 | Discharge Summary ---
Discharge Provider Provider IMPORTANT FOLLOW-UP INFORMATION FOR PCP: Patient information: Note initiated : 05/27/22 at 12:28 pm Service Date, if different from initiated Date: [] Patient: Farhad Horton 82 y/o M admitted on 05/26/22 for Stroke symptoms-Stroke Acute. Chief Complaint: [] Date of admission: 05/26/22 11:27 Discharge date: 05/29/22 Primary care physician: Alejandro Carr DO Consults: 05/25/22 Consult to Physician [CONS] Stat Comment: Consulting Provider: Miguel Martins Reason For Exam: Physician to Consult 05/25/22 14:19 Consult to Physician [CONS] Stat Comment: Consulting Provider: Telestroke-Sylvia Reason For Exam: Physician to Consult 05/27/22 10:25 Consult to Physician [CONS] Routine Comment: RHN referral Consulting Provider: Leland Abreu Reason For Exam: Physician to Consult COURSE Hospital Course Hospital course: History of present illness: Mr. Horton is a 82 year old M Presents the ED with left-sided weakness and left facial droop and slurred speech although sounds like the patient has had slurred speech. Last known normal at 9 AM this morning. Patient also fell out of bed this morning. Patient is a poor historian given his lack of speech and most history obtained from family and chart. Telestroke was contacted who reviewed CTA head/neck. Patient out of window and recommendation stroke to treat conservatively and continue stroke work-up.. Per the family he was complaining of some neck and arm pain for 5 months ago and he had weakness in his right hand which is improved overall but does wax and wane. Family also said that 3-4l days ago he said he had some vertigo and slurring while at [facility] and the patient is told family that he has had some slurring from time to time. CTA head and neck showed some old stroke but nothing acute. In the ED was found to be hypertensive. He also leukocytosis and an elevated BUN to creatinine ratio. Urinalysis pending. Antibiotics also given because of leukocytosis and urinalysis was ordered blood cultures. EKG sinus. 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 No concern from stroke neurologist for transfer. Patient today has some mild increased movement of his left arm and leg. He is speaking more but slurred. He will gazing to the right. Awaiting speech therapy evaluation. Leukocytosis resolved. Urinalysis not concerning for infection. Chest x-ray unremarkable. Continue dual antiplatelets and statin. Echo pending. PT OT. 05/27 Patient showing improvement today. Seen by speech therapy and put on dysphagia diet. Patient speech still little bit slurred but more clear than it has been. Moving arm and leg more. 05/28 Patient seems to feeling better. More positive and is seeing some slow gradual improvements. At bedside always, very supportive. Physical therapy to get patient out of bed today. 05/29 No overnight event or new complaints. Seen by physical therapy yesterday. Stable for discharge to [facility] today. 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 noted on initial imaging *HTN: on norvasc *Volume depletion: P: -DAPT/Statin -dysphagia diet per Discharge diagnosis: Acute CVA with left hemiparesis and gaze abnormality Secondary discharge diagnosis: History of CVA hypertension Time Spent with Patient Time attestation: Total time spent providing and/or coordinating discharge services: Time spent: Greater than 30 minutes EXAM Constitutional Vitals: Temp Pulse Resp BP Pulse Ox O2 Del Method O2 Flow Rate 98.5 F 61 16 150/84 98 0 05/27/22 08:46 05/27/22 10:16 05/27/22 10:16 05/27/22 10:16 05/27/22 10:16 05/27/22 10:16 05/25/22 21:01 Discharge Data Data Completed and Pending Labs on day of discharge: Preliminary micro results at discharge 05/25/22 16:29 Blood Culture - Preliminary Blood 05/25/22 16:25 Blood Culture - Preliminary Blood Discharge Plan Patient/Caregiver Discharge Instructions Activity: increase activity as tolerated Diet: Dysphagia Level 4 Pureed Foods Prescriptions: New Aspirin 81 mg PO DAILY Qty: 60 0RF atorvastatin 40 mg Tablet 80 mg PO HS Qty: 60 0RF clopidogrel 75 mg Tablet 75 mg PO DAILY Qty: 28 0RF Continued amlodipine 10 mg tablet 10 mg PO QDAY Discontinued ibuprofen 200 mg capsule 400 mg PO Q8H Follow Up Plan Follow up with: Alejandro Carr DO [Primary Care Provider] - Patient Disposition: Xfer SNF Prognosis: Fair Rehab Potential: Fair I certify that the patient requires SNF services: Yes Overall status at discharge: patient is not back to baseline Discharge Orders: Discharge Order (Routine); Ordered 05/29/22 Ordered By: Miguel Martins [facility] VTE Deep Vein Thrombosis/Pulmonary Embolism Present on Admission: No
[2022-05-27] MEDS: ATORVASTATIN 40 MG TABLET PO SCH (21:40)
[2022-05-28] MEDS: 0.9 % SODIUM CHLORIDE 10 ML SYRINGE IV SCH ×3 (06:01→21:25)
--- NOTE | 2022-05-28 08:04 | Internal Med Progress Note ---
SUBJECTIVE Subjective Patient information: Note initiated : 05/28/22 at 8:03 am Service Date, if different from initiated Date: [] Patient: Farhad Horton 82 y/o M admitted on 05/26/22 for Stroke symptoms-Stroke Acute. Chief Complaint: [] Interval history: History of present illness: Mr. Horton is a 82 year old M Presents the ED with left-sided weakness and left facial droop and slurred speech although sounds like the patient has had slurred speech. Last known normal at 9 AM this morning. Patient also fell out of bed this morning. Patient is a poor historian given his lack of speech and most history obtained from family and chart. Telestroke was contacted who reviewed CTA head/neck. Patient out of window and recommendation stroke to treat conservatively and continue stroke work-up.. Per the family he was complaining of some neck and arm pain for 5 months ago and he had weakness in his right hand which is improved overall but does wax and wane. Family also said that 3-4l days ago he said he had some vertigo and slurring while at [facility] and the patient is told family that he has had some slurring from time to time. CTA head and neck showed some old stroke but nothing acute. In the ED was found to be hypertensive. He also leukocytosis and an elevated BUN to creatinine ratio. Urinalysis pending. Antibiotics also given because of leukocytosis and urinalysis was ordered blood cultures. EKG sinus. 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 No concern from stroke neurologist for transfer. Patient today has some mild increased movement of his left arm and leg. He is speaking more but slurred. He will gazing to the right. Awaiting speech therapy evaluation. Leukocytosis resolved. Urinalysis not concerning for infection. Chest x-ray unremarkable. Continue dual antiplatelets and statin. Echo pending. PT OT. 05/27 Patient showing improvement today. Seen by speech therapy and put on dysphagia diet. Patient speech still little bit slurred but more clear than it has been. Moving arm and leg more. 05/28 Patient seems to feeling better. More positive and is seeing some slow gradual improvements. At bedside always, very supportive. Physical therapy to get patient out of bed today. Review of Systems: denies headache/fever/chills/nausea/vomiting/chest or abdominal pain/cough/dyspnea/diarrhea. Otherwise see above. Constitutional Vitals: Vital Signs Temp Pulse Resp BP Pulse Ox O2 Del Method O2 Flow Rate 98.0 F 59 L 14 161/75 99 0 05/28/22 04:01 05/28/22 06:01 05/28/22 06:01 05/28/22 06:01 05/28/22 06:01 05/28/22 06:01 05/25/22 21:01 Period Temp Pulse Resp BP Sys/Gallagher Pulse Ox O2 Del Method O2 Flow Rate Last 24 Hr 97.6 F-98.9 F 52-64 13-20 138-191/69-95 95-100 Room Air-Room Air Intake and Output 05/27/22 05/28/22 05/28/22 19:59 03:59 11:59 Intake Total 120 Output Total 101 2 Balance 19 -2 Weight 83.234 kg 82.055 kg Intake & Output: Intake & Output 05/27/22 05/28/22 05/28/22 19:59 03:59 11:59 Intake Total 120 Output Total 101 2 Balance 19 -2 Weight 83.234 kg 82.055 kg Intake: Oral 120 Output: Void Amount 100 # of times incontinent of urine 1 2 Other: Meal Lunch Percent of Meal Consumed 25% Feeding Ability Total Assistance Urine Appearance Clear Urine Color Bright Yellow Urine Odor Normal # Voids 0 # Bowel Movements 0 # of times incontinent of 0 Bowels Exam: General: Alert, Awake, No acute Distress Eyes/N/T: Patient has a conjugate gaze to the right improving Head/Neck: neck supple, CV: RRR, No murmurs, Pulm: Clear b/l, no wheezing/rhonchi/rales Abd: soft, nontender, +BS x4 Ext: no clubbing/cyanosis/edema Neuro: Alert, left-sided hemiparesis Arm>Leg slowly improving, conjugate gaze to the right improving, dysarthria present. Skin: warm/dry OBJ DATA Labs CBC & Chem 7: 05/26/22 05:53 05/26/22 05:53 Labs: Abnormal Lab Results 05/26/22 05/26/22 05/25/22 05:53 05:53 18:44 WBC RBC 4.31 L Hgb 12.4 L Hct 39.1 L RDW 16.7 H Plt Count Immature Gran % (Auto) 1.2 H Neut % (Auto) Lymph % (Auto) 15.4 L Lymph # (Auto) [place] # (Auto) 1.10 H Seg Neutrophils % Lymphocytes % Immature Gran # 0.12 H Absolute Neutrophils Platelet Estimate RBC Morphology Anisocytosis POC PT POC BUN POC Glucose Alkaline Phosphatase 139 H Lactate Dehydrogenase 412 H Albumin Globulin LDL Cholesterol, Calc 122 H Non-HDL Cholesterol 147 H HDL Cholesterol 32 L Urine Appearance Urine Protein Urine Ketones Urine Occult Blood Urine RBC Urine Mucus POC Troponin I 05/25/22 05/25/22 05/25/22 16:24 15:06 14:23 WBC 18.8 H RBC Hgb Hct RDW 16.1 H Plt Count 445 H Immature Gran % (Auto) 1.5 H Neut % (Auto) 82.6 H Lymph % (Auto) 4.9 L Lymph # (Auto) 0.93 L [place] # (Auto) 1.86 H Seg Neutrophils % Lymphocytes % Immature Gran # 0.29 H Absolute Neutrophils 15.52 H Platelet Estimate RBC Morphology Anisocytosis POC PT 11.8 L POC BUN POC Glucose Alkaline Phosphatase Lactate Dehydrogenase Albumin Globulin LDL Cholesterol, Calc Non-HDL Cholesterol HDL Cholesterol Urine Appearance Sl cloudy A Urine Protein 30 A Urine Ketones 15 A Urine Occult Blood Large A Urine RBC > 182 H Urine Mucus Many A POC Troponin I 05/25/22 05/25/22 05/25/22 14:22 14:22 14:20 WBC RBC Hgb Hct RDW Plt Count Immature Gran % (Auto) Neut % (Auto) Lymph % (Auto) Lymph # (Auto) [place] # (Auto) Seg Neutrophils % 91 H Lymphocytes % 3 L Immature Gran # Absolute Neutrophils Platelet Estimate Decreased A RBC Morphology Abnormal A Anisocytosis 1+ A POC PT POC BUN 23 H POC Glucose 113 H Alkaline Phosphatase < 5 L Lactate Dehydrogenase Albumin < 0.2 L Globulin 5.8 H LDL Cholesterol, Calc Non-HDL Cholesterol HDL Cholesterol Urine Appearance Urine Protein Urine Ketones Urine Occult Blood Urine RBC Urine Mucus POC Troponin I 05/25/22 14:18 WBC RBC Hgb Hct RDW Plt Count Immature Gran % (Auto) Neut % (Auto) Lymph % (Auto) Lymph # (Auto) [place] # (Auto) Seg Neutrophils % Lymphocytes % Immature Gran # Absolute Neutrophils Platelet Estimate RBC Morphology Anisocytosis POC PT POC BUN POC Glucose Alkaline Phosphatase Lactate Dehydrogenase Albumin Globulin LDL Cholesterol, Calc Non-HDL Cholesterol HDL Cholesterol Urine Appearance Urine Protein Urine Ketones Urine Occult Blood Urine RBC Urine Mucus POC Troponin I 0.10 H Meds: Medications Acetaminophen (Acetaminophen 325 Mg Tablet) 650 mg PO Q6HP PRN; Protocol PRN Reason: Per Pain Protocol/Fever > 101 Hydrocodone Bitart/Acetaminophen (Hydrocodone/Apap 5/325mg Tablet) 1 tab PO Q4HP PRN PRN Reason: PAIN LEVEL 3-6 Albuterol/Ipratropium (Ipratropium/Albuterol 3 Ml Ampul.Neb) 3 ml NEB Q4HP PRN PRN Reason: Shortness Of Breath Aspirin (Aspirin 81 Mg Tab.Chew) 81 mg CHEWED DAILY [facility] Last Admin: 05/27/22 08:29 Dose: 81 mg Atorvastatin Calcium (Atorvastatin 40 Mg Tablet) 80 mg PO HS [facility] Last Admin: 05/27/22 21:40 Dose: 80 mg Clopidogrel Bisulfate (Clopidogrel 75 Mg Tablet) 75 mg PO DAILY [facility] Last Admin: 05/27/22 08:29 Dose: 75 mg Docusate Sodium (Docusate Sodium 100 Mg Capsule) 100 mg PO BID [facility] Last Admin: 05/27/22 21:40 Dose: 100 mg Enoxaparin Sodium (Enoxaparin 40 Mg/0.4 Ml Syringe) 40 mg SQ DAILY [facility] Last Admin: 05/27/22 08:29 Dose: 40 mg Potassium Chloride 40 meq/ (Dextrose) 520 mls @ 130 mls/hr IV UD PRN PRN Reason: Potassium < 3 Magnesium Sulfate (Magnesium Sulfate) 2 gm in 50 mls @ 50 mls/hr IV UD PRN PRN Reason: Magnesium </= 1.6 Labetalol HCl (Labetalol 5 Mg/Ml Ml) 0 mg IV Q2HP PRN PRN Reason: Hypertension Ondansetron HCl (Ondansetron 4 Mg/2 Ml Vial) 4 mg IV Q4HP PRN PRN Reason: Nausea And Vomiting Pantoprazole Sodium (Pantoprazole 40 Mg Vial) 40 mg IV QAMAC [facility] Last Admin: 05/27/22 08:09 Dose: 40 mg Polyethylene Glycol (Polyethylene Glycol 3350 17 Gm Packet) 17 gm PO DAILYP PRN PRN Reason: Constipation Potassium Chloride (Potassium Chloride 20 Meq Tablet) 40 meq PO UD PRN PRN Reason: Potssium is 3-3.5 Potassium Chloride (Potassium Chloride 20 Meq Tablet) 40 meq PO UD PRN PRN Reason: Potassium < 3 Senna (Sennosides 1 Tablet) 2 tab PO DAILYP PRN PRN Reason: Constipation Sodium Chloride (0.9 % Sodium Chloride 10 Ml Syringe) 10 ml IV Q8 PAUL Last Admin: 05/28/22 06:01 Dose: 10 ml A/P Narrative A/P Narrative: A: *Acute CVA (Mariela right sided, small left occipital && parietal) > Left hemiparesis, right conjugate gaze: -ABCD=6 -basilar artery narrowing, imaging read by stroke neurologist -echo no thrombus, normal sinus ekg *h/o CVA: Old infarcts noted on initial imaging *[facility] *Volume depletion: improving *Leukocytosis: resolved, no infectious source found, likely reactive. No bandemia, Afebrile. UA/CXR unremarkable. BC neg *chr neck pain: 6 tabs of ibuprofen per day per family P: -DAPT/Statin -dysphagia diet per ST -starting home [facility] -Neurochecks -pt/ot/ST -CM for placement needs -ppx: lovenox / ppi Time Spent With Patient Time: Total time spent is greater than 50% in coordination of care (as documented) at patient's floor/unit and/or counseling patient: Total time spent with greater than 50% in coordination of care (as documented) at patient's floor/unit and/or counseling patient:: 35 - 50 minutes QUALITY Stroke Onset of Symptoms Date: 05/25/22 Onset of Symptoms Time: 00:00 Symptom Onset Unknown: Yes VTE Deep Vein Thrombosis/Pulmonary Embolism Present on Admission: No
[2022-05-28] MEDS: PANTOPRAZOLE 40 MG VIAL IV SCH (08:35)
[2022-05-28] MEDS: DOCUSATE SODIUM 100 MG CAPSULE PO SCH ×2 (08:35→21:25)
[2022-05-28] MEDS: ASPIRIN 81 MG TAB.CHEW CHEWED SCH (08:35)
[2022-05-28] MEDS: ENOXAPARIN 40 MG/0.4 ML SYRINGE SQ SCH (08:35)
[2022-05-28] MEDS: CLOPIDOGREL 75 MG TABLET PO SCH (08:35)
[2022-05-28] MEDS ORDERED: amLODIPine 5 MG TABLET PO SCH (09:00)
[2022-05-28] MEDS ORDERED: amLODIPine 5 MG TABLET PO ONE (09:45)
--- NOTE | 2022-05-28 11:30 | EKG ---
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
[2022-05-28] MEDS: ATORVASTATIN 40 MG TABLET PO SCH (21:25)
[2022-05-29] MEDS: 0.9 % SODIUM CHLORIDE 10 ML SYRINGE IV SCH ×2 (05:54→14:18)
--- NOTE | 2022-05-29 08:10 | Internal Med Progress Note ---
SUBJECTIVE Subjective Patient information: Note initiated : 05/29/22 at 8:09 am Service Date, if different from initiated Date: [] Patient: Farhad Horton 82 y/o M admitted on 05/26/22 for Stroke symptoms-Stroke Acute. Chief Complaint: [] Interval history: History of present illness: Mr. Horton is a 82 year old M Presents the ED with left-sided weakness and left facial droop and slurred speech although sounds like the patient has had slurred speech. Last known normal at 9 AM this morning. Patient also fell out of bed this morning. Patient is a poor historian given his lack of speech and most history obtained from family and chart. Telestroke was contacted who reviewed CTA head/neck. Patient out of window and recommendation stroke to treat conservatively and continue stroke work-up.. Per the family he was complaining of some neck and arm pain for 5 months ago and he had weakness in his right hand which is improved overall but does wax and wane. Family also said that 3-4l days ago he said he had some vertigo and slurring while at [facility] and the patient is told family that he has had some slurring from time to time. CTA head and neck showed some old stroke but nothing acute. In the ED was found to be hypertensive. He also leukocytosis and an elevated BUN to creatinine ratio. Urinalysis pending. Antibiotics also given because of leukocytosis and urinalysis was ordered blood cultures. EKG sinus. 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 No concern from stroke neurologist for transfer. Patient today has some mild increased movement of his left arm and leg. He is speaking more but slurred. He will gazing to the right. Awaiting speech therapy evaluation. Leukocytosis resolved. Urinalysis not concerning for infection. Chest x-ray unremarkable. Continue dual antiplatelets and statin. Echo pending. PT OT. 05/27 Patient showing improvement today. Seen by speech therapy and put on dysphagia diet. Patient speech still little bit slurred but more clear than it has been. Moving arm and leg more. 05/28 Patient seems to feeling better. More positive and is seeing some slow gradual improvements. At bedside always, very supportive. Physical therapy to get patient out of bed today. Review of Systems: denies headache/fever/chills/nausea/vomiting/chest or abdominal pain/cough/dyspnea/diarrhea. Otherwise see above. Constitutional Vitals: Vital Signs Temp Pulse Resp BP Pulse Ox O2 Del Method O2 Flow Rate 98.7 F 60 15 130/78 95 0 05/29/22 08:08 05/29/22 08:08 05/29/22 08:08 05/29/22 08:08 05/29/22 08:08 05/29/22 05:00 05/25/22 21:01 Period Temp Pulse Resp BP Sys/Gallagher Pulse Ox O2 Del Method O2 Flow Rate Last 24 Hr 97.6 F-98.9 F 60-69 - 113-151/71-94 95-98 Room Air-Room Air Intake and Output 05/28/22 05/29/22 05/29/22 19:59 03:59 11:59 Intake Total 240 240 Output Total 3 1 1 Balance 237 239 -1 Weight 83.098 kg Intake & Output: Intake & Output 05/28/22 05/29/22 05/29/22 19:59 03:59 11:59 Intake Total 240 240 Output Total 3 1 1 Balance 237 239 -1 Weight 83.098 kg Intake: Oral 240 240 Output: # of times incontinent of urine 3 1 1 Other: Meal Dinner Percent of Meal Consumed 50% Feeding Ability Total Assistance # Voids 1 # Bowel Movements 0 # of times incontinent of 0 Bowels Exam: General: Alert, Awake, No acute Distress Eyes/N/T: Patient has a conjugate gaze to the right improving Head/Neck: neck supple, CV: RRR, No murmurs, Pulm: Clear b/l, no wheezing/rhonchi/rales Abd: soft, nontender, +BS x4 Ext: no clubbing/cyanosis/edema Neuro: Alert, left-sided hemiparesis Arm>Leg slowly improving, conjugate gaze to the right improving, dysarthria present. Skin: warm/dry OBJ DATA Labs CBC & Chem 7: 05/26/22 05:53 05/26/22 05:53 Labs: Abnormal Lab Results 05/26/22 05:53 Alkaline Phosphatase 139 H Lactate Dehydrogenase 412 H Meds: Medications Acetaminophen (Acetaminophen 325 Mg Tablet) 650 mg PO Q6HP PRN; Protocol PRN Reason: Per Pain Protocol/Fever > 101 Hydrocodone Bitart/Acetaminophen (Hydrocodone/Apap 5/325mg Tablet) 1 tab PO Q4HP PRN PRN Reason: PAIN LEVEL 3-6 Albuterol/Ipratropium (Ipratropium/Albuterol 3 Ml Ampul.Neb) 3 ml NEB Q4HP PRN PRN Reason: Shortness Of Breath Amlodipine Besylate (Amlodipine 10 Mg Tablet) 10 mg PO DAILY [facility] Aspirin (Aspirin 81 Mg Tab.Chew) 81 mg CHEWED DAILY [facility] Last Admin: 05/28/22 08:35 Dose: 81 mg Atorvastatin Calcium (Atorvastatin 40 Mg Tablet) 80 mg PO HS [facility] Last Admin: 05/28/22 21:25 Dose: 80 mg Clopidogrel Bisulfate (Clopidogrel 75 Mg Tablet) 75 mg PO DAILY [facility] Last Admin: 05/28/22 08:35 Dose: 75 mg Docusate Sodium (Docusate Sodium 100 Mg Capsule) 100 mg PO BID [facility] Last Admin: 05/28/22 21:25 Dose: 100 mg Enoxaparin Sodium (Enoxaparin 40 Mg/0.4 Ml Syringe) 40 mg SQ DAILY [facility] Last Admin: 05/28/22 08:35 Dose: 40 mg Potassium Chloride 40 meq/ (Dextrose) 520 mls @ 130 mls/hr IV UD PRN PRN Reason: Potassium < 3 Magnesium Sulfate (Magnesium Sulfate) 2 gm in 50 mls @ 50 mls/hr IV UD PRN PRN Reason: Magnesium </= 1.6 Labetalol HCl (Labetalol 5 Mg/Ml Ml) 0 mg IV Q2HP PRN PRN Reason: Hypertension Ondansetron HCl (Ondansetron 4 Mg/2 Ml Vial) 4 mg IV Q4HP PRN PRN Reason: Nausea And Vomiting Pantoprazole Sodium (Pantoprazole 40 Mg Vial) 40 mg IV QAMAC [facility] Last Admin: 05/28/22 08:35 Dose: 40 mg Polyethylene Glycol (Polyethylene Glycol 3350 17 Gm Packet) 17 gm PO DAILYP PRN PRN Reason: Constipation Potassium Chloride (Potassium Chloride 20 Meq Tablet) 40 meq PO UD PRN PRN Reason: Potssium is 3-3.5 Potassium Chloride (Potassium Chloride 20 Meq Tablet) 40 meq PO UD PRN PRN Reason: Potassium < 3 Senna (Sennosides 1 Tablet) 2 tab PO DAILYP PRN PRN Reason: Constipation Sodium Chloride (0.9 % Sodium Chloride 10 Ml Syringe) 10 ml IV Q8 PAUL Last Admin: 05/29/22 05:54 Dose: 10 ml A/P Narrative A/P Narrative: A: *Acute CVA (Mariela right sided, small left occipital && parietal) > Left hemiparesis, right conjugate gaze: -ABCD=6 -basilar artery narrowing, imaging read by stroke neurologist -echo no thrombus, normal sinus ekg *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 No bandemia, Afebrile. UA/CXR unremarkable. BC neg *chr neck pain: 6 tabs of ibuprofen per day per family P: -DAPT/Statin -dysphagia diet per ST -starting home [facility] -Neurochecks -pt/ot/ST -CM for placement needs -ppx: lovenox / ppi Time Spent With Patient Time: Total time spent is greater than 50% in coordination of care (as documented) at patient's floor/unit and/or counseling patient: Total time spent with greater than 50% in coordination of care (as documented) at patient's floor/unit and/or counseling patient:: 35 - 50 minutes QUALITY Stroke Onset of Symptoms Date: 05/25/22 Onset of Symptoms Time: 00:00 Symptom Onset Unknown: Yes VTE Deep Vein Thrombosis/Pulmonary Embolism Present on Admission: No
[2022-05-29] MEDS: DOCUSATE SODIUM 100 MG CAPSULE PO SCH (08:33)
[2022-05-29] MEDS: CLOPIDOGREL 75 MG TABLET PO SCH (08:33)
[2022-05-29] MEDS: ASPIRIN 81 MG TAB.CHEW CHEWED SCH (08:33)
[2022-05-29] MEDS: PANTOPRAZOLE 40 MG VIAL IV SCH (08:33)
[2022-05-29] MEDS: ENOXAPARIN 40 MG/0.4 ML SYRINGE SQ SCH (08:33)
[2022-05-29] MEDS ORDERED: amLODIPine 10 MG TABLET PO SCH (09:00)
== END 2022-05-29 11:30 | DRG 65 ==
LOC: ICU 14:11 → ED 14:11 → ICU 18:54
PROVIDERS: ADMIT Internal Medicine; ATTEND Internal Medicine

== ENCOUNTER 2022-10-19 15:47 | Observation (INO) ==
[2022-10-19] MEDS ORDERED: IOPAMIDOL 100 ML BOTTLE IV ONE (15:48)
[2022-10-19] MEDS ORDERED: ACETAMINOPHEN 325 MG TABLET PO ONE (16:07)
[2022-10-19 16:11] LABS: POC Calcium, Ionized 1.11 (1.16-1.32); POC Creatinine 0.8 (0.6-1.2); POC Potassium 4.1 (3.3-5.1)
[2022-10-19] MEDS ORDERED: 0.9 % SODIUM CHLORIDE 1,000 ML IV SCH (16:15)
--- NOTE | 2022-10-19 16:26 | Cat Scan Report ---
CLINICAL INFORMATION: Stroke COMPARISON: 09/11/2022 TECHNIQUE: 2.5 mm helical slices were obtained in the skull base to vertex. Following reconstruction, axial reformatted images were reviewed at bone and parenchymal windows. The exam was performed using radiation dose optimization techniques including, but not limited to, automated exposure control, adjustment of the mA and/or kV according to patient size and use of iterative reconstruction technique. FINDINGS: The ventricles, sulci, fissures, and cisterns are symmetrically enlarged compatible with mild age-related atrophy. No extra-axial fluid collections are identified. Mild patchy chronic ischemic changes, in the deep cerebral white matter, are expected for age. Small remote lacunar infarcts in the thalami in the deep left frontal white matter seen as before. There is no hemorrhage, mass effect, or edema. Bone windows show no osseous abnormality. IMPRESSION: Mild atrophy and chronic ischemic changes in the deep cerebral white matter-expected for age. No acute findings. Interpreted and Authenticated by: Alejandro Serrato 10/19/22
--- NOTE | 2022-10-19 16:59 | Cat Scan Report ---
CLINICAL INFORMATION: Stroke COMPARISON: None. TECHNIQUE: 80 cc of Isovue-370 were injected intravenously , and using SmartPrep to maximize cerebral arterial opacification, 0.625 mm helical slices were obtained from the skull base through the cerebral vertex. Following reconstruction , sagittal, coronal and axial reformatted images were processed and reviewed at multiple windows and levels. 3D volume rendered and MIP images were acquired at a independent workstation. The exam was performed using radiation dose optimization techniques including, but not limited to, automated exposure control, adjustment of the mA and/or kV according to patient size and use of iterative reconstruction technique. FINDINGS: The intracranial internal carotid, vertebral, basilar, anterior, middle and posterior cerebral arteries and their branches are well-opacified and normal in contour and caliber without significant stenosis, occlusion or other pathology. Superficial/deep cerebral veins and deep venous sinuses are widely patent IMPRESSION: Normal exam Interpreted and Authenticated by: Alejandro Serrato 10/19/22
[2022-10-19 17:00] LABS: Basophils % (Auto) 0.7 % (0.0-2.0); Eosinophils # (Auto) 0.11 K/mcL (0.00-0.70); Eosinophils % (Auto) 0.8 % (0.0-7.0); Hematocrit 41.7 % (40.1-51.0); Hemoglobin 13.4 g/dL (13.7-17.5); Lymphocytes # (Auto) 1.07 K/mcL (1.50-4.80); Lymphocytes % (Auto) 7.6 % (15.5-49.0); Mean Corpuscular HGB Conc 32.1 g/dL (31.0-36.0); Mean Platelet Volume 10.4 fL (8.8-12.5); Monocytes # (Auto) 1.64 K/mcL (0.10-0.90); Monocytes % (Auto) 11.6 % (1.0-12.0); Neutrophils % (Auto) 75.5 % (38.0-78.0); Platelet Count 729 K/mcL (140-440); RBC 4.58 M/mcL (4.63-6.08); Red Cell Distribution Width 18.1 % (11.5-14.5); WBC 14.1 K/mcL (4.5-11.0)
--- NOTE | 2022-10-19 17:04 | Cat Scan Report ---
CLINICAL INFORMATION: Code stroke COMPARISON: None. TECHNIQUE: 80 cc of Isovue-300 were injected intravenously followed by 40 cc of normal saline flush. Using SmartPrep, 0.625 helical slices were obtained from the thoracic aortic arch through the [place]. Following reconstruction, 2.5 mm sagittal, coronal and axial reformatted images were processed. MIPS , 3-D volume rendering and CPR images were also constructed. The exam was performed using radiation dose optimization techniques including, but not limited to, automated exposure control, adjustment of the mA and/or kV according to patient size and use of iterative reconstruction technique. FINDINGS: The thoracic aortic arch is normal diameter with minimal intimal thickening and conventional aortic branching. The brachiocephalic, both subclavian, both common, internal and external carotid and both vertebral arteries are widely patent. There is mild fibrofatty calcific plaque in both carotid bifurcations. At C5-6 and C6-7, moderate broad disc spur complex and facet arthropathy result in severe lateral IV foraminal narrowing with exiting C6 and C7 nerve root impingement. No soft tissue abnormality. IMPRESSION: Mild fibrofatty calcific plaque in both carotid bifurcations. All carotid, vertebral, subclavian and brachycephalic arteries are widely patent. Degenerative stenosis in the lower cervical spine Interpreted and Authenticated by: Alejandro Serrato 10/19/22
[2022-10-19 17:06] LABS: POC INR 1.4 (0.8-1.2)
[2022-10-19 17:35] LABS: ALT/SGPT 95 U/L (<40); AST/SGOT 73 U/L (<40); Alkaline Phosphatase 182 U/L (39-117); Bilirubin,Direct < 0.2 mg/dL (0-0.3); Bilirubin,Total 0.3 mg/dL (0.1-1.0); Globulin 2.7 gm/dL (2.2-3.7)
--- NOTE | 2022-10-19 18:17 | Emergency Department Note ---
HPI General Chief complaint: Stroke Symptoms Stated complaint: stroke symptoms, found unconscious Time Seen by Provider: 10/19/22 15:52 Source: patient and family Mode of arrival: EMS Limitations: no limitations History of Present Illness HPI Narrative: Narrative: This is a 82-year-old male with a prior history of stroke most recently in April presents to the emergency department with worsening left-sided weak ness, confusion. He was last known to be at his baseline about 5 hours prior to arrival. He lives with his granddaughter she states that around 11 this morning she left they had breakfast together and he seemed to be in his usual state of health. A legal clerk went to check on him and thought he had been sleeping and then just prior to arrival he had been noted to be slumped over confused and not able to stand. At baseline patient walks with a walker. The granddaughter states that he has not had any recent infectious symptoms. He is being worked up for thrombocytosis. The patient is on Plavix. Related Data Home Medications Medication Instructions Recorded Confirmed multivitamin 1 tab PO QDAY 07/04/22 10/19/22 tamsulosin 0.4 mg capsule 0.8 mg PO QHS 10/19/22 10/19/22 Previous Rx's Medication Instructions Recorded atorvastatin 40 mg tablet 80 mg PO HS #60 tabs 05/27/22 clopidogrel 75 mg tablet 75 mg PO DAILY #90 tabs 09/01/22 sertraline 50 mg tablet 50 mg PO QDAY #90 tabs 09/01/22 finasteride 5 mg tablet 5 mg PO QHS #90 tabs 10/07/22 Allergies Allergy/AdvReac Type Severity Reaction Status Date / Time No Known Drug Allergies Allergy Verified 10/19/22 23:13 Review of Systems ROS ROS Narrative: Narrative: All systems ED: reviewed and negative except as stated. 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 Alert. No distress. HEENT: NCAT PERRL EOMI. No conjunctivitis. Membranes moist. Neck: Supple, trachea midline Cardiovascular: RRR. No murmur. No rubs. No gallops. Respiratory: No respiratory distress. Breath sounds equal. Lungs clear. Gastrointestinal: Soft. No tenderness Musculoskeletal: No pain. No soft tissue swelling. Good ROM. No signs injury Skin: Warm. Dry. No rash Neurologic: Alert only to person, patient has left pronator drip, left upper dysmetria and a slight left lower extremity weakness compared to the contralateral when asking to lift his leg up off the bed. His face is symmetric he denies any focal numbness or numbness in his forehead cheek or chin General Limitations: no limitations Course Vital Signs Vital signs: Vital Signs Temperature 99.3 F H 10/19/22 15:51 Pulse Rate 87 10/19/22 15:51 Respiratory Rate 16 10/19/22 15:51 Blood Pressure 120/68 10/19/22 15:51 Pulse Oximetry (%) 95 10/19/22 15:51 Oxygen Delivery Method Room Air 10/19/22 15:51 Temperature 97.5 F 10/20/22 04:01 Pulse Rate 62 10/20/22 04:46 Respiratory Rate 19 10/20/22 04:46 Blood Pressure 142/61 10/20/22 04:46 Pulse Oximetry (%) 96 10/20/22 04:46 Oxygen Delivery Method Room Air 10/19/22 20:46 MDM MDM Narrative Medical decision making narrative: Narrative: Patient presents to the emergency department with confusion. Left-sided w eakness. He has a prior history of stroke. He is outside of the window for tPA as it has been 5 hours since he was last known well. His NIH is 3 with confusion and left-sided pronator drift. And the family states that his symptoms are starting to improve. He has a low-grade fever. His blood sugar is noncontributory. CT scan of the brain shows no acute intracranial hemorrhage, CTA of the head and neck was without findings of large vessel occlusion. 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 Patient has a significantly elevated white blood cell count with left shift his lactate is 3.2. The other differential besides stroke includes seizure, sepsis. Patient's urinalysis does have leukocyte Estrace indicative of infection, chest x-ray per my interpretation is without any findings of infiltrate. Lab Data 10/20/22 05:20 10/20/22 05:20 Labs: Lab Results 10/19/22 10/19/22 10/19/22 Range/Units 15:53 15:56 15:58 WBC (4.5-11.0) K/mcL RBC (4.63-6.08) M/mcL Hgb (13.7-17.5) g/dL Hct (40.1-51.0) % POC Hct 42.0 (41-55) MCV (80.0-100.0) fL MCH (26.0-34.0) pg MCHC (31.0-36.0) g/dL RDW (11.5-14.5) % Plt Count (140-440) K/mcL MPV (8.8-12.5) fL Immature Gran % (Auto) (0.0-0.5) % Neut % (Auto) (38.0-78.0) % Lymph % (Auto) (15.5-49.0) % Avery % (Auto) (1.0-12.0) % Eos % (Auto) (0.0-7.0) % Baso % (Auto) (0.0-2.0) % Lymph # (Auto) (1.50-4.80) K/mcL [place] # (Auto) (0.10-0.90) K/mcL Eos # (Auto) (0.00-0.70) K/mcL Baso # (Auto) (0.00-0.30) K/mcL Immature Gran # (0.00-0.05) K/mcl Absolute Neutrophils (1.80-8.00) K/mcL POC PT (11.9-14.5) POC INR (0.8-1.2) APTT (20.0-37.0) sec POC VBG pH 7.45 H (7.32-7.42) POC VBG pCO2 at Temp 30.6 L (41-51) POC VBG pO2 45 H (25-40) POC VBG HCO3 21.2 L (24-28) POC VBG Total CO2 22.0 L (25-29) POC Venous O2 Sat 84.0 H (40-70) POC VBG Base Excess -3.0 L (-2-2) VBG Lactic Acid 3.2 H (0.5-2) POC Sodium 137 (133-145) POC Potassium 4.1 (3.3-5.1) POC Chloride 105 (96-108) POC Total CO2 20.0 L (22-30) POC BUN 21 H (6-20) POC Creatinine 0.8 (0.6-1.2) POC Glucose 180 H (70-105) POC WB Ioniz Calcium 1.11 L (1.16-1.32) Total Bilirubin (0.1-1.0) mg/dL Direct Bilirubin (0-0.3) mg/dL AST (<40) U/L ALT (<40) U/L Alkaline Phosphatase (39-117) U/L Total Protein (5.9-8.4) gm/dL Albumin (3.2-5.2) gm/dL Globulin (2.2-3.7) gm/dL Procalcitonin (<0.10) ng/mL Prolactin (4.0-15.2) ng/mL Urine Color Urine Appearance (Clear) Urine pH (5.0-9.0) Ur Specific [place] (1.000-1.035) Urine Protein (Negative) mg/dL Urine Glucose (UA) (Negative) mg/dL Urine Ketones (Negative) mg/dL Urine Occult Blood (Negative) mg/dL Urine Nitrate (Negative) Urine Bilirubin (Negative) mg/dL Urine Urobilinogen mg/dL Ur Leukocyte Esterase (Negative) /uL Urine RBC (0-3) /hpf Urine WBC (0-4) /hpf Ur Squamous Epith Cells (0-4) /hpf Urine Bacteria (0) /hpf Urine Mucus (None) /hpf Ur Culture Indicated? POC Troponin I 0.03 (0.00-0.08) 10/19/22 10/19/22 10/19/22 Range/Units 16:10 16:10 16:10 WBC 14.1 H (4.5-11.0) K/mcL RBC 4.58 L (4.63-6.08) M/mcL Hgb 13.4 L (13.7-17.5) g/dL Hct 41.7 (40.1-51.0) % POC Hct (41-55) MCV 91.0 (80.0-100.0) fL MCH 29.3 (26.0-34.0) pg MCHC 32.1 (31.0-36.0) g/dL RDW 18.1 H (11.5-14.5) % Plt Count 729 H (140-440) K/mcL MPV 10.4 (8.8-12.5) fL Immature Gran % (Auto) 3.8 H (0.0-0.5) % Neut % (Auto) 75.5 (38.0-78.0) % Lymph % (Auto) 7.6 L (15.5-49.0) % Avery % (Auto) 11.6 (1.0-12.0) % Eos % (Auto) 0.8 (0.0-7.0) % Baso % (Auto) 0.7 (0.0-2.0) % Lymph # (Auto) 1.07 L (1.50-4.80) K/mcL Avery # (Auto) 1.64 H (0.10-0.90) K/mcL Eos # (Auto) 0.11 (0.00-0.70) K/mcL Baso # (Auto) 0.10 (0.00-0.30) K/mcL Immature Gran # 0.53 H (0.00-0.05) K/mcl Absolute Neutrophils 10.67 H (1.80-8.00) K/mcL POC PT (11.9-14.5) POC INR (0.8-1.2) APTT 27.9 (20.0-37.0) sec POC VBG pH (7.32-7.42) POC VBG pCO2 at Temp (41-51) POC VBG pO2 (25-40) POC VBG HCO3 (24-28) POC VBG Total CO2 (25-29) POC Venous O2 Sat (40-70) POC VBG Base Excess (-2-2) VBG Lactic Acid (0.5-2) POC Sodium (133-145) POC Potassium (3.3-5.1) POC Chloride (96-108) POC Total CO2 (22-30) POC BUN (6-20) POC Creatinine (0.6-1.2) POC Glucose (70-105) POC WB Ioniz Calcium (1.16-1.32) Total Bilirubin 0.3 (0.1-1.0) mg/dL Direct Bilirubin < 0.2 (0-0.3) mg/dL AST 73 H (<40) U/L ALT 95 H (<40) U/L Alkaline Phosphatase 182 H (39-117) U/L Total Protein 6.7 (5.9-8.4) gm/dL Albumin 4.0 (3.2-5.2) gm/dL Globulin 2.7 (2.2-3.7) gm/dL Procalcitonin (<0.10) ng/mL Prolactin (4.0-15.2) ng/mL Urine Color Urine Appearance (Clear) Urine pH (5.0-9.0) Ur Specific [place] (1.000-1.035) Urine Protein (Negative) mg/dL Urine Glucose (UA) (Negative) mg/dL Urine Ketones (Negative) mg/dL Urine Occult Blood (Negative) mg/dL Urine Nitrate (Negative) Urine Bilirubin (Negative) mg/dL Urine Urobilinogen mg/dL Ur Leukocyte Esterase (Negative) /uL Urine RBC (0-3) /hpf Urine WBC (0-4) /hpf Ur Squamous Epith Cells (0-4) /hpf Urine Bacteria (0) /hpf Urine Mucus (None) /hpf Ur Culture Indicated? POC Troponin I (0.00-0.08) 10/19/22 10/19/22 10/19/22 Range/Units 17:04 17:40 18:09 WBC (4.5-11.0) K/mcL RBC (4.63-6.08) M/mcL Hgb (13.7-17.5) g/dL Hct (40.1-51.0) % POC Hct (41-55) MCV (80.0-100.0) fL MCH (26.0-34.0) pg MCHC (31.0-36.0) g/dL RDW (11.5-14.5) % Plt Count (140-440) K/mcL MPV (8.8-12.5) fL Immature Gran % (Auto) (0.0-0.5) % Neut % (Auto) (38.0-78.0) % Lymph % (Auto) (15.5-49.0) % Avery % (Auto) (1.0-12.0) % Eos % (Auto) (0.0-7.0) % Baso % (Auto) (0.0-2.0) % Lymph # (Auto) (1.50-4.80) K/mcL [place] # (Auto) (0.10-0.90) K/mcL Eos # (Auto) (0.00-0.70) K/mcL Baso # (Auto) (0.00-0.30) K/mcL Immature Gran # (0.00-0.05) K/mcl Absolute Neutrophils (1.80-8.00) K/mcL POC PT 17.0 H (11.9-14.5) POC INR 1.4 H (0.8-1.2) APTT (20.0-37.0) sec POC VBG pH (7.32-7.42) POC VBG pCO2 at Temp (41-51) POC VBG pO2 (25-40) POC VBG HCO3 (24-28) POC VBG Total CO2 (25-29) POC Venous O2 Sat (40-70) POC VBG Base Excess (-2-2) VBG Lactic Acid (0.5-2) POC Sodium (133-145) POC Potassium (3.3-5.1) POC Chloride (96-108) POC Total CO2 (22-30) POC BUN (6-20) POC Creatinine (0.6-1.2) POC Glucose (70-105) POC WB Ioniz Calcium (1.16-1.32) Total Bilirubin (0.1-1.0) mg/dL Direct Bilirubin (0-0.3) mg/dL AST (<40) U/L ALT (<40) U/L Alkaline Phosphatase (39-117) U/L Total Protein (5.9-8.4) gm/dL Albumin (3.2-5.2) gm/dL Globulin (2.2-3.7) gm/dL Procalcitonin 0.58 H (<0.10) ng/mL Prolactin (4.0-15.2) ng/mL Urine Color Yellow Urine Appearance Clear (Clear) Urine pH 5.0 (5.0-9.0) Ur Specific [place] 1.058 (1.000-1.035) Urine Protein Negative (Negative) mg/dL Urine Glucose (UA) Negative (Negative) mg/dL Urine Ketones Negative (Negative) mg/dL Urine Occult Blood Negative (Negative) mg/dL Urine Nitrate Negative (Negative) Urine Bilirubin Negative (Negative) mg/dL Urine Urobilinogen Negative mg/dL Ur Leukocyte Esterase 25 A (Negative) /uL Urine RBC 3 (0-3) /hpf Urine WBC 6 H (0-4) /hpf Ur Squamous Epith Cells < 1 (0-4) /hpf Urine Bacteria None (0) /hpf Urine Mucus Many A (None) /hpf Ur Culture Indicated? No POC Troponin I (0.00-0.08) 10/19/22 Range/Units 18:09 WBC (4.5-11.0) K/mcL RBC (4.63-6.08) M/mcL Hgb (13.7-17.5) g/dL Hct (40.1-51.0) % POC Hct (41-55) MCV (80.0-100.0) fL MCH (26.0-34.0) pg MCHC (31.0-36.0) g/dL RDW (11.5-14.5) % Plt Count (140-440) K/mcL MPV (8.8-12.5) fL Immature Gran % (Auto) (0.0-0.5) % Neut % (Auto) (38.0-78.0) % Lymph % (Auto) (15.5-49.0) % [place] % (Auto) (1.0-12.0) % Eos % (Auto) (0.0-7.0) % Baso % (Auto) (0.0-2.0) % Lymph # (Auto) (1.50-4.80) K/mcL [place] # (Auto) (0.10-0.90) K/mcL Eos # (Auto) (0.00-0.70) K/mcL Baso # (Auto) (0.00-0.30) K/mcL Immature Gran # (0.00-0.05) K/mcl Absolute Neutrophils (1.80-8.00) K/mcL POC PT (11.9-14.5) POC INR (0.8-1.2) APTT (20.0-37.0) sec POC VBG pH (7.32-7.42) POC VBG pCO2 at Temp (41-51) POC VBG pO2 (25-40) POC VBG HCO3 (24-28) POC VBG Total CO2 (25-29) POC Venous O2 Sat (40-70) POC VBG Base Excess (-2-2) VBG Lactic Acid (0.5-2) POC Sodium (133-145) POC Potassium (3.3-5.1) POC Chloride (96-108) POC Total CO2 (22-30) POC BUN (6-20) POC Creatinine (0.6-1.2) POC Glucose (70-105) POC WB Ioniz Calcium (1.16-1.32) Total Bilirubin (0.1-1.0) mg/dL Direct Bilirubin (0-0.3) mg/dL AST (<40) U/L ALT (<40) U/L Alkaline Phosphatase (39-117) U/L Total Protein (5.9-8.4) gm/dL Albumin (3.2-5.2) gm/dL Globulin (2.2-3.7) gm/dL Procalcitonin (<0.10) ng/mL Prolactin 7.0 (4.0-15.2) ng/mL Urine Color Urine Appearance (Clear) Urine pH (5.0-9.0) Ur Specific [place] (1.000-1.035) Urine Protein (Negative) mg/dL Urine Glucose (UA) (Negative) mg/dL Urine Ketones (Negative) mg/dL Urine Occult Blood (Negative) mg/dL Urine Nitrate (Negative) Urine Bilirubin (Negative) mg/dL Urine Urobilinogen mg/dL Ur Leukocyte Esterase (Negative) /uL Urine RBC (0-3) /hpf Urine WBC (0-4) /hpf Ur Squamous Epith Cells (0-4) /hpf Urine Bacteria (0) /hpf Urine Mucus (None) /hpf Ur Culture Indicated? POC Troponin I (0.00-0.08) EKG Data EKG #1: EKG attestation: Yes I reviewed and interpreted this EKG., Yes There are no EKG findings of acute coronary syndrome and Yes This EKG will be read by human service technician EKG shows normal: sinus rhythm Discharge Plan Patient/Caregiver Discharge Instructions Pt seen by GRADUATE ASSISTANT ATHLETIC TRAINER/PA only: No Clinical Impression: CVA (cerebrovascular accident), Acute UTI Patient Disposition: Xfer As Inpt ([facility]) Condition: Fair Discharge Date/Time: 10/19/22 20:55 Discharge Location: Other/Unlisted Discharge Comment: ICU
[2022-10-19 19:13] LABS: Appearance,Urine CLEAR (Clear); Bilirubin,Urine Negative (Negative); Color,Urine YELLOW; Culture Indicated,Urine No; Glucose,Urine (UA) Negative (Negative); Ketones,Urine Negative (Negative); Leukocyte Esterase,Urine 25 /uL (Negative); Mucus,Urine MANY /hpf; Nitrate,Urine Negative (Negative); Protein,Urine Negative (Negative); Specific Gravity,Urine 1.058 (1.000-1.035); Urine Blood Negative (Negative); Urine RBC 3 /hpf (0-3); Urine Squamous Epithelial Cell < 1 /hpf (0-4); Urine WBC 6 /hpf (0-4); Urobilinogen,Urine Negative
[2022-10-19] MEDS ORDERED: cefTRIAXone 1 GM VIAL IV ONE (19:29)
--- NOTE | 2022-10-19 19:58 | Internal Med History&Physical ---
HPI History of Present Illness Patient information: Note initiated : 10/19/22 at 7:50 pm Service Date, if different from initiated Date: [] Patient: Farhda Horton 82 y/o M admitted on for stroke symptoms, found unconscious. Chief Complaint: [left sided weakness, lethargy ] Chief complaint: left sided weakness, lethargy History of present illness: Mr. Horton is a 82 year old M history of stroke, BPH, presenting with 1 day history of acute onset left-sided weakness and lethargy. Last seen normal was at around 11 AM. At around 1230 when the caregiver check on the patient's, he was found to be reported more sleepy and also with increased left-sided weakness. 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 Patient does not remember any of the reported symptoms. When he was brought to our ED, he was already 5 hours since the onset of symptoms. It was reported by the family and caregiver that his symptoms already started to improve relative to the onset time. Patient right now denies having any pain or discomfort. He denies having any chest pain, palpitations, or shortness of breath. He denies any confusions, lethargy, or headaches. He is however complaining of dysuria. NIH stroke scale was 3 at ED presentations. Patient was found to have left- sided pronator drift, and left lower extremity weakness when he was asked to sit up on the bed. Vital signs significant for soft blood pressure with blood pressure as low as 89/52mmHg. Low grade fever Tmax 37.4. Labs significant for leukocytosis with WBC 14.1. Serum procalcitonin level 0.58. Lactic acid 3.2. UA suggesting the presence of urinary tract infection. CT of the head without contrast did not show any acute intracranial pathologies. CT angiogram of the head and the neck also did not found any hemodynamically significant stenosis. Admission request is called for stroke versus TIA and urinary infections. Constitutional Constitutional: Absent chills, excessive sweating, fatigue, fever(s) or weakness EENT Eyes: Absent blurry vision, change in vision, loss of vision or other visual disturbances Ears: Absent decreased hearing or tinnitus Nose, mouth and throat: Absent abnormal hearing, dry mouth, headache(s), nasal congestion or sore throat Cardiovascular Cardiovascular: Absent chest pain, chest pain at rest, edema, irregular heart rhythm or palpatations Respiratory Respiratory: Absent cough, dyspnea or wheezing Gastrointestinal Gastrointestinal: Absent abdominal pain, constipation, diarrhea, nausea or vom iting Genitourinary Genitourinary: dysuria Musculoskeletal Musculoskeletal: Absent back pain, deformity, limited range of motion, muscle cramps, muscle weakness or numbness Integumentary Integumentary: Absent lesions, rash or wounds Neurological Neurological: Absent focal weakness, headache(s) or numbness Psychiatric Psychiatric: Absent anxiety, depression or hallucinations PFSH PFSH All Active Problems (Updated 10/19/22 @ 20:02 by Marcos Cooley MD) TIA (transient ischemic attack) (Acute) Acute stroke due to ischemia (Acute) UTI (urinary tract infection) (Acute) BPH w urinary obs/LUTS (Acute) Dysphagia (Acute) 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) (Acute) HLD (hyperlipidemia) (Acute) Post-COVID chronic anxiety (Acute) Essential hypertension (Acute) CVA (cerebral vascular accident) (Acute) Leukocytosis (Acute) Decreased strength of upper extremity (Chronic) Medical History Decreased strength of upper extremity Surgical History No history of previous surgery Family History Other No pertinent family history Social History marital status: occupational status: retired smoking status: Former smoker alcohol intake frequency: does not drink substance use type: does not use MEDS/ALLERGIES Home Medications and Allergies Home Medications Medication Instructions Recorded Confirmed Type atorvastatin 40 mg tablet 80 mg PO HS #60 tabs 05/27/22 10/07/22 Rx multivitamin 1 tab PO QDAY 07/04/22 10/07/22 History tamsulosin 0.4 mg capsule 0.4 mg PO QHS #30 caps 07/04/22 10/07/22 Rx clopidogrel 75 mg tablet 75 mg PO DAILY #90 tabs 09/01/22 10/07/22 Rx sertraline 50 mg tablet 50 mg PO QDAY #90 tabs 09/01/22 10/07/22 Rx finasteride 5 mg tablet 5 mg PO QHS #90 tabs 04/14/23 04/14/23 Rx Allergies Allergy/AdvReac Type Severity Reaction Status Date / Time No Known Drug Allergies Allergy Verified 10/07/22 11:15 EXAM Constitutional Vitals: Temp Pulse Resp BP Pulse Ox O2 Del Method 36.5 C 73 13 102/57 94 Room Air 10/19/22 19:03 10/19/22 17:01 10/19/22 19:03 10/19/22 19:03 10/19/22 17:01 10/19/22 16:07 General appearance: cooperative and no acute distress Head Head exam: Present atraumatic and normocephalic Eye Eye exam: Present EOMI and PERRL ENT ENT exam: Present mucous membranes moist, normal exam and normal external ear exam Neck Neck exam: Present normal inspection; Absent lymphadenopathy, tenderness or thyromegaly Respiratory Respiratory exam: Absent accessory muscle use, respiratory distress or wheezes Cardiovascular Cardiovascular exam: Present normal rate and rhythm; Absent JVD GI/Abdominal GI/Abdominal exam: Present normal bowel sounds and soft; Absent organomegaly or tenderness Rectal Rectal exam: Present deferred Extremities Exam Extremities exam: Present full ROM, normal capillary refill and normal inspection; Absent tenderness Neurological Exam Neurological exam: Present alert, CN II-XII intact and oriented X3; Absent motor sensory deficit Additional comments: Left pronator drift Motor strength 4/5 left upper extremity, 5/5 rest of the major muscle groups Light touch sensation intact in all 4 extremities Psychiatric Psychiatric exam: Present normal affect and normal mood; Absent anxious or depressed Skin Skin exam: Present dry and intact DATA Data Completed and Pending Labs: Labs from last 24 hours 10/19/22 10/19/22 10/19/22 18:09 18:09 17:40 WBC RBC Hgb Hct POC Hct MCV MCH MCHC RDW Plt Count MPV Immature Gran % (Auto) Neut % (Auto) Lymph % (Auto) [place] % (Auto) Eos % (Auto) Baso % (Auto) Lymph # (Auto) [place] # (Auto) Eos # (Auto) Baso # (Auto) Immature Gran # Absolute Neutrophils POC PT POC INR APTT POC VBG pH POC VBG pCO2 at Temp POC VBG pO2 POC VBG HCO3 POC VBG Total CO2 POC Venous O2 Sat POC VBG Base Excess VBG Lactic Acid POC Sodium POC Potassium POC Chloride POC Total CO2 POC BUN POC Creatinine POC Glucose POC WB Ioniz Calcium Total Bilirubin Direct Bilirubin AST ALT Alkaline Phosphatase Total Protein Albumin Globulin Procalcitonin 0.58 H Prolactin 7.0 Urine Color Yellow Urine Appearance Clear Urine pH 5.0 Ur Specific [place] 1.058 Urine Protein Negative Urine Glucose (UA) Negative Urine Ketones Negative Urine Occult Blood Negative Urine Nitrate Negative Urine Bilirubin Negative Urine Urobilinogen Negative Ur Leukocyte Esterase 25 A Urine RBC 3 Urine WBC 6 H Ur Squamous Epith Cells < 1 Urine Bacteria None Urine Mucus Many A Ur Culture Indicated? No POC Troponin I 10/19/22 10/19/22 10/19/22 17:04 16:10 16:10 WBC RBC Hgb Hct POC Hct MCV MCH MCHC RDW Plt Count MPV Immature Gran % (Auto) Neut % (Auto) Lymph % (Auto) [place] % (Auto) Eos % (Auto) Baso % (Auto) Lymph # (Auto) [place] # (Auto) Eos # (Auto) Baso # (Auto) Immature Gran # Absolute Neutrophils POC PT 17.0 H POC INR 1.4 H APTT 27.9 POC VBG pH POC VBG pCO2 at Temp POC VBG pO2 POC VBG HCO3 POC VBG Total CO2 POC Venous O2 Sat POC VBG Base Excess VBG Lactic Acid POC Sodium POC Potassium POC Chloride POC Total CO2 POC BUN POC Creatinine POC Glucose POC WB Ioniz Calcium Total Bilirubin 0.3 Direct Bilirubin < 0.2 AST 73 H ALT 95 H Alkaline Phosphatase 182 H Total Protein 6.7 Albumin 4.0 Globulin 2.7 Procalcitonin Prolactin Urine Color Urine Appearance Urine pH Ur Specific [place] Urine Protein Urine Glucose (UA) Urine Ketones Urine Occult Blood Urine Nitrate Urine Bilirubin Urine Urobilinogen Ur Leukocyte Esterase Urine RBC Urine WBC Ur Squamous Epith Cells Urine Bacteria Urine Mucus Ur Culture Indicated? POC Troponin I 10/19/22 10/19/22 10/19/22 16:10 15:58 15:56 WBC 14.1 H RBC 4.58 L Hgb 13.4 L Hct 41.7 POC Hct 42.0 MCV 91.0 MCH 29.3 MCHC 32.1 RDW 18.1 H Plt Count 729 H MPV 10.4 Immature Gran % (Auto) 3.8 H Neut % (Auto) 75.5 Lymph % (Auto) 7.6 L [place] % (Auto) 11.6 Eos % (Auto) 0.8 Baso % (Auto) 0.7 Lymph # (Auto) 1.07 L [place] # (Auto) 1.64 H Eos # (Auto) 0.11 Baso # (Auto) 0.10 Immature Gran # 0.53 H Absolute Neutrophils 10.67 H POC PT POC INR APTT POC VBG pH POC VBG pCO2 at Temp POC VBG pO2 POC VBG HCO3 POC VBG Total CO2 POC Venous O2 Sat POC VBG Base Excess VBG Lactic Acid POC Sodium 137 POC Potassium 4.1 POC Chloride 105 POC Total CO2 20.0 L POC BUN 21 H POC Creatinine 0.8 POC Glucose 180 H POC WB Ioniz Calcium 1.11 L Total Bilirubin Direct Bilirubin AST ALT Alkaline Phosphatase Total Protein Albumin Globulin Procalcitonin Prolactin Urine Color Urine Appearance Urine pH Ur Specific [place] Urine Protein Urine Glucose (UA) Urine Ketones Urine Occult Blood Urine Nitrate Urine Bilirubin Urine Urobilinogen Ur Leukocyte Esterase Urine RBC Urine WBC Ur Squamous Epith Cells Urine Bacteria Urine Mucus Ur Culture Indicated? POC Troponin I 0.03 10/19/22 15:53 WBC RBC Hgb Hct POC Hct MCV MCH MCHC RDW Plt Count MPV Immature Gran % (Auto) Neut % (Auto) Lymph % (Auto) [place] % (Auto) Eos % (Auto) Baso % (Auto) Lymph # (Auto) [place] # (Auto) Eos # (Auto) Baso # (Auto) Immature Gran # Absolute Neutrophils POC PT POC INR APTT POC VBG pH 7.45 H POC VBG pCO2 at Temp 30.6 L POC VBG pO2 45 H POC VBG HCO3 21.2 L POC VBG Total CO2 22.0 L POC Venous O2 Sat 84.0 H POC VBG Base Excess -3.0 L VBG Lactic Acid 3.2 H POC Sodium POC Potassium POC Chloride POC Total CO2 POC BUN POC Creatinine POC Glucose POC WB Ioniz Calcium Total Bilirubin Direct Bilirubin AST ALT Alkaline Phosphatase Total Protein Albumin Globulin Procalcitonin Prolactin Urine Color Urine Appearance Urine pH Ur Specific [place] Urine Protein Urine Glucose (UA) Urine Ketones Urine Occult Blood Urine Nitrate Urine Bilirubin Urine Urobilinogen Ur Leukocyte Esterase Urine RBC Urine WBC Ur Squamous Epith Cells Urine Bacteria Urine Mucus Ur Culture Indicated? POC Troponin I A/P Assessment and plan (1) BPH w urinary obs/LUTS: Status: Acute (2) UTI (urinary tract infection): Status: Acute (3) Essential hypertension: Status: Acute (4) HLD (hyperlipidemia): Status: Acute (5) Acute stroke due to ischemia: Status: Acute (6) TIA (transient ischemic attack): Status: Acute Narrative A/P Narrative: Assessment and Plans: 1. Acute ischemic stroke: DDx TIA, sepsis Observation PCU telemetry Permissive hypertension X48hr, Hydralazine 10mg IV q4-6hr PRN SBP>=220 and/or DBP>=120mmHg; hold any other antihypertensives Aspirin Plavix Statin HgA1c screening Lipid panel screening Bedside swallowing evaluation before feeding patient 2D echocardiogram MRI brain stroke protocol Physical therapy evaluation and treatment Occupational therapy evaluation and treatment Speech therapy evaluation and treatment 2. Urinary tract infection: Serial lactic acid Procalcitonin level Blood culture Urine culture cbc w/ auto diff in the morning to trend WBC Rocephin NS@100cc/hr 3. h/o essential hypertension: Permissive hypertension X48hr, Hydralazine 10mg IV q4-6hr PRN SBP>=220 and/or DBP>=120mmHg; hold any other antihypertensives 4. Dyslipidemia: Lipid panel screening Continue statin therapy 5. h/o Benign prostatic hypertrophy: Finasteride Flomax GI ppx: not currently indicated DVT ppx: Lovenox Code status: Full Prognosis: Guarded Disposition: observation PCU Time Spent With Patient Time: Total time spent is greater than 50% in coordination of care (as documented) at patient's floor/unit and/or counseling patient: Initial: Total time with patient: 55 - 74 minutes QUALITY Stroke Symptom Onset Unknown: No
[2022-10-19] MEDS ORDERED: LACTULOSE 20 GM/30 ML ORAL.SOL PO PRN (20:51)
[2022-10-19] MEDS ORDERED: hydrALAZINE 20 MG/ML VIAL IV PRN (20:51)
[2022-10-19] MEDS ORDERED: IPRATROPIUM/ALBUTEROL 3 ML AMPUL.NEB NEB PRN (20:51)
[2022-10-19] MEDS ORDERED: ASPIRIN 81 MG TAB.CHEW CHEWED SCH (20:51)
[2022-10-19] MEDS ORDERED: SENNOSIDES 1 TABLET PO PRN (20:51)
[2022-10-19] MEDS ORDERED: ONDANSETRON 4 MG/2 ML VIAL IV PRN (20:51)
[2022-10-19] MEDS ORDERED: ACETAMINOPHEN 325 MG TABLET PO PRN (20:51)
[2022-10-19] MEDS ORDERED: cefTRIAXone 1 GM in DEXTROSE 5% IN WATER 50 ML IV SCH (20:51)
[2022-10-19] MEDS: 0.9 % SODIUM CHLORIDE 10 ML SYRINGE IV SCH (21:52)
[2022-10-19] MEDS: 0.9 % SODIUM CHLORIDE 1,000 ML IV SCH (21:52)
[2022-10-19] MEDS: DOCUSATE SODIUM 100 MG CAPSULE PO SCH (21:52)
--- NOTE | 2022-10-20 02:48 | XRay Report ---
CLINICAL INFORMATION: Sepsis COMPARISON: 06/25/2022 TECHNIQUE: Portable FINDINGS: The heart size, mediastinum and pulmonary vessels are unremarkable. Small infiltrate has developed in the left lung base.. There are no effusions. The bones and soft tissues are within normal limits. IMPRESSION: Small left basilar infiltrate. Interpreted and Authenticated by: Alejandro Serrato 10/20/22
[2022-10-20] MEDS: 0.9 % SODIUM CHLORIDE 10 ML SYRINGE IV SCH ×4 (05:55→21:39)
[2022-10-20 06:46] LABS: Basophils # (Auto) 0.05 K/mcL (0.00-0.30); Basophils % (Auto) 0.5 % (0.0-2.0); Eosinophils # (Auto) 0.16 K/mcL (0.00-0.70); Eosinophils % (Auto) 1.5 % (0.0-7.0); Hematocrit 35.8 % (40.1-51.0); Hemoglobin 11.4 g/dL (13.7-17.5); Lymphocytes # (Auto) 2.12 K/mcL (1.50-4.80); Lymphocytes % (Auto) 20.4 % (15.5-49.0); Mean Cell Volume 91.1 fL (80.0-100.0); Mean Corpuscular HGB Conc 31.8 g/dL (31.0-36.0); Mean Platelet Volume 10.3 fL (8.8-12.5); Monocytes # (Auto) 1.41 K/mcL (0.10-0.90); Monocytes % (Auto) 13.6 % (1.0-12.0); Neutrophils % (Auto) 60.9 % (38.0-78.0); Platelet Count 645 K/mcL (140-440); RBC 3.93 M/mcL (4.63-6.08); Red Cell Distribution Width 18.3 % (11.5-14.5); WBC 10.4 K/mcL (4.5-11.0)
[2022-10-20 07:03] LABS: ALT/SGPT 79 U/L (<40); AST/SGOT 54 U/L (<40); Albumin 3.6 gm/dL (3.2-5.2); Albumin/Globulin Ratio 1.6 (1.0-2.3); Alkaline Phosphatase 139 U/L (39-117); Bilirubin,Total 0.4 mg/dL (0.1-1.0); Blood Urea Nitrogen 15 mg/dL (8-23); Calcium 8.8 mg/dL (8.6-10.4); Carbon Dioxide 23 mmol/L (22-30); Chloride 107 mmol/L (96-108); Globulin 2.3 gm/dL (2.2-3.7); Glomerular Filtration Rate 86; Glucose 94 mg/dL (70-105); HDL Cholesterol 25 mg/dL (>40); LDL Cholesterol,Calculated 27 mg/dL (<100); Non-HDL Cholesterol 40 mg/dL (<130); Triglycerides 70 mg/dL (<150)
[2022-10-20] MEDS: 0.9 % SODIUM CHLORIDE 1,000 ML IV SCH ×2 (08:00→19:45)
[2022-10-20] MEDS: cefTRIAXone 1 GM VIAL IV SCH (08:51)
[2022-10-20] MEDS: ENOXAPARIN 40 MG/0.4 ML SYRINGE SQ SCH (08:51)
[2022-10-20] MEDS: DOCUSATE SODIUM 100 MG CAPSULE PO SCH ×2 (08:52→19:44)
--- NOTE | 2022-10-20 09:23 | Internal Med Progress Note ---
SUBJECTIVE Subjective Patient information: Note initiated : 10/20/22 at 9:21 am Service Date, if different from initiated Date: [] Patient: Farhad Horton 82 y/o M admitted on 10/19/22 for stroke symptoms, found unconscious, TIA, Sepsis,. Chief Complaint: [] Interval history: Mr. Horton is a 82 year old M history of stroke, BPH, presenting with 1 day history of acute onset left-sided weakness and lethargy. Last seen normal was at around 11 AM. At around 1230 when the caregiver check on the patient's, he was found to be reported more sleepy and also with increased left-sided weakness. 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 Patient does not remember any of the reported symptoms. When he was brought to our ED, he was already 5 hours since the onset of symptoms. It was reported by the family and caregiver that his symptoms already started to improve relative to the onset time. Patient right now denies having any pain or discomfort. He denies having any chest pain, palpitations, or shortness of breath. He denies any confusions, lethargy, or headaches. He is however complaining of dysuria. NIH stroke scale was 3 at ED presentations. Patient was found to have left- sided pronator drift, and left lower extremity weakness when he was asked to sit up on the bed. Vital signs significant for soft blood pressure with blood pressure as low as 89/52mmHg. Low grade fever Tmax 37.4. Labs significant for leukocytosis with WBC 14.1. Serum procalcitonin level 0.58. Lactic acid 3.2. UA suggesting the presence of urinary tract infection. CT of the head without contrast did not show any acute intracranial pathologies. CT angiogram of the head and the neck also did not found any hemodynamically significant stenosis. Admission request is called for stroke versus TIA and urinary infections. 10/20: Afebrile overnight. Cultures no growth today. Respiratory panel are negative. WBC down trended from 14.1-10.4 this morning. Chest x-ray showing small left basilar infiltrate. NIH stroke scale of this morning pending. Patient feels good right now, denies any pain or discomfort. He denies any shortness of breath. He denies any fever chills or diaphoresis. He denies any urinary symptoms. Add azithromycin for coverage of atypical pneumonia. Continue Rocephin for both pneumonia and urinary tract infections while waiting for culture result. MRI of the brain stroke protocol today. Physical therapy, Occupational Therapy, and speech therapy evaluation and treatment. Continue aspirin, Plavix, and statin for stroke secondary prevention's. Permissive hypertension for 48 hours. Overall condition still guarded. Constitutional Vitals: Vital Signs Temp Pulse Resp BP Pulse Ox O2 Del Method 36.4 C 62 19 142/61 96 Room Air 10/20/22 04:01 10/20/22 04:46 10/20/22 04:46 10/20/22 04:46 10/20/22 04:46 10/19/22 20:46 Period Temp Pulse Resp BP Sys/[place] Pulse Ox O2 Del Method O2 Flow Rate Last 24 Hr 36.3 C-37.4 C 57-87 06-21 89-142/52-85 82-100 Room Air-Room Air Intake and Output 10/19/22 10/20/22 10/20/22 19:59 03:59 11:59 Intake Total 1000 1000 Output Total 501 1 Balance 499 999 Weight 79.379 kg 80.195 kg Intake & Output: Intake & Output 10/19/22 10/20/22 10/20/22 19:59 03:59 11:59 Intake Total 1000 1000 Output Total 501 1 Balance 499 999 Weight 79.379 kg 80.195 kg Intake: IV 1000 1000 Sodium Chloride 0.9% 1,000 ml @ 1000 1000 100 mls/hr IV .Q10H PAUL Rx#: [id number] Oral 0 Output: Void Amount 500 0 # of times incontinent of urine 1 1 Other: Urine Appearance Clear Urine Color Dark Yellow Urine Odor Strong Head Head exam: Present atraumatic and normal inspection Eye Eye exam: Present normal appearance ENT ENT exam: Present mucous membranes moist, normal exam and normal external ear exam Neck Neck exam: Present normal inspection Respiratory Respiratory exam: Present normal respiratory exam Cardiovascular Cardiovascular exam: Present normal rate and rhythm GI/Abdominal GI/Abdominal exam: Present normal bowel sounds Back Exam Back exam: Present normal inspection Neurological Exam Neurological exam: Present alert and oriented X3 Skin Skin exam: Present intact and warm OBJ DATA Labs 10/20/22 05:20 10/20/22 05:20 Labs: Abnormal Lab Results 10/20/22 10/20/22 10/19/22 05:20 05:20 18:09 WBC RBC 3.93 L Hgb 11.4 L Hct 35.8 L RDW 18.3 H Plt Count 645 H Immature Gran % (Auto) 3.1 H Lymph % (Auto) [place] % (Auto) 13.6 H Lymph # (Auto) [place] # (Auto) 1.41 H Immature Gran # 0.32 H Absolute Neutrophils POC PT POC INR POC VBG pH POC VBG pCO2 at Temp POC VBG pO2 POC VBG HCO3 POC VBG Total CO2 POC Venous O2 Sat POC VBG Base Excess VBG Lactic Acid POC Total CO2 POC BUN POC Glucose POC WB Ioniz Calcium AST 54 H ALT 79 H Alkaline Phosphatase 139 H HDL Cholesterol 25 L Procalcitonin 0.58 H Ur Leukocyte Esterase Urine WBC Urine Mucus 10/19/22 10/19/22 10/19/22 17:40 17:04 16:10 WBC RBC Hgb Hct RDW Plt Count Immature Gran % (Auto) Lymph % (Auto) [place] % (Auto) Lymph # (Auto) [place] # (Auto) Immature Gran # Absolute Neutrophils POC PT 17.0 H POC INR 1.4 H POC VBG pH POC VBG pCO2 at Temp POC VBG pO2 POC VBG HCO3 POC VBG Total CO2 POC Venous O2 Sat POC VBG Base Excess VBG Lactic Acid POC Total CO2 POC BUN POC Glucose POC WB Ioniz Calcium AST 73 H ALT 95 H Alkaline Phosphatase 182 H HDL Cholesterol Procalcitonin Ur Leukocyte Esterase 25 A Urine WBC 6 H Urine Mucus Many A 10/19/22 10/19/22 10/19/22 16:10 15:56 15:53 WBC 14.1 H RBC 4.58 L Hgb 13.4 L Hct RDW 18.1 H Plt Count 729 H Immature Gran % (Auto) 3.8 H Lymph % (Auto) 7.6 L [place] % (Auto) Lymph # (Auto) 1.07 L [place] # (Auto) 1.64 H Immature Gran # 0.53 H Absolute Neutrophils 10.67 H POC PT POC INR POC VBG pH 7.45 H POC VBG pCO2 at Temp 30.6 L POC VBG pO2 45 H POC VBG HCO3 21.2 L POC VBG Total CO2 22.0 L POC Venous O2 Sat 84.0 H POC VBG Base Excess -3.0 L VBG Lactic Acid 3.2 H POC Total CO2 20.0 L POC BUN 21 H POC Glucose 180 H POC WB Ioniz Calcium 1.11 L AST ALT Alkaline Phosphatase HDL Cholesterol Procalcitonin Ur Leukocyte Esterase Urine WBC Urine Mucus Meds: Medications Acetaminophen (Acetaminophen 325 Mg Tablet) 650 mg PO Q6HP PRN; Protocol PRN Reason: Per Pain Protocol/Fever > 101 Albuterol/Ipratropium (Ipratropium/Albuterol 3 Ml Ampul.Neb) 3 ml NEB Q4HRT PRN PRN Reason: Wheezing Atorvastatin Calcium (Atorvastatin 40 Mg Tablet) 80 mg PO HS [facility] Ceftriaxone Sodium (Ceftriaxone 1 Gm Vial) 1 gm IV Q24H [facility] Last Admin: 10/20/22 08:51 Dose: 1 gm Clopidogrel Bisulfate (Clopidogrel 75 Mg Tablet) 75 mg PO DAILY [facility] Docusate Sodium (Docusate Sodium 100 Mg Capsule) 100 mg PO BID [facility] Last Admin: 10/20/22 08:52 Dose: Not Given Enoxaparin Sodium (Enoxaparin 40 Mg/0.4 Ml Syringe) 40 mg SQ DAILY [facility] Last Admin: 10/20/22 08:51 Dose: 40 mg Finasteride (Finasteride 5 Mg Tablet) 5 mg PO QHS [facility] Hydralazine HCl (Hydralazine 20 Mg/Ml Vial) 10 mg IV Q4-6HP PRN PRN Reason: Hypertension Sodium Chloride (Sodium Chloride 0.9%) 1,000 mls @ 100 mls/hr IV .Q10H [facility] Last Admin: 10/20/22 08:00 Dose: 100 mls/hr Iron Carb/Multivit/[place]/Folic Acid (Multivit,Ther Iron,Ca,Fa & Min 1 Tablet) 1 tab PO QDAY [facility] Lactulose (Lactulose 20 Gm/30 Ml Oral.Rebecca) 10 gm PO DAILYP PRN PRN Reason: Constipation Ondansetron HCl (Ondansetron 4 Mg/2 Ml Vial) 4 mg IV Q4HP PRN; Protocol PRN Reason: Nausea And Vomiting Senna (Sennosides 1 Tablet) 2 tab PO HSP PRN PRN Reason: Constipation Sertraline HCl (Sertraline 50 Mg Tablet) 50 mg PO QDAY [facility] Sodium Chloride (0.9 % Sodium Chloride 10 Ml Syringe) 10 ml IV Q8 [facility] Last Admin: 10/20/22 05:55 Dose: 10 ml Tamsulosin HCl (Tamsulosin 0.4 Mg Capsule) 0.8 mg PO QHS [facility]UL A/P Assessment and plan (1) BPH w urinary obs/LUTS: Status: Acute (2) UTI (urinary tract infection): Status: Acute (3) Essential hypertension: Status: Acute (4) HLD (hyperlipidemia): Status: Acute (5) Acute stroke due to ischemia: Status: Acute (6) TIA (transient ischemic attack): Status: Acute (7) Left lower lobe pneumonia: Status: Acute Narrative A/P Narrative: Assessment and Plans: 1. Acute ischemic stroke: DDx TIA, sepsis Observation PCU telemetry Permissive hypertension X48hr, Hydralazine 10mg IV q4-6hr PRN SBP>=220 and/or DBP>=120mmHg; hold any other antihypertensives Aspirin Plavix Statin HgA1c screening Lipid panel screening Bedside swallowing evaluation before feeding patient 2D echocardiogram MRI brain stroke protocol Physical therapy evaluation and treatment Occupational therapy evaluation and treatment Speech therapy evaluation and treatment 2. Urinary tract infection: Serial lactic acid, down trended Procalcitonin level, elevated Blood culture, no growth to date Urine culture, no growth to date cbc w/ auto diff in the morning to trend WBC Rocephin NS@100cc/hr 3. h/o essential hypertension: Permissive hypertension X48hr, Hydralazine 10mg IV q4-6hr PRN SBP>=220 and/or DBP>=120mmHg; hold any other antihypertensives 4. Dyslipidemia: Lipid panel screening Continue statin therapy 5. h/o Benign prostatic hypertrophy: Finasteride Flomax 6. Left basilar pneumonia: Blood culture, no growth to date cbc w/ auto diff in the morning to trend WBC Supplemental oxygen therapy Rocephin Zithromax NS@100cc/hr GI ppx: not currently indicated DVT ppx: Lovenox Code status: Full Prognosis: Guarded Disposition: observation PCU Time Spent With Patient Time: Total time spent is greater than 50% in coordination of care (as documented) at patient's floor/unit and/or counseling patient: Subsequent: Total time with patient: 35 - 49 minutes QUALITY Stroke Onset of Symptoms Date: 10/19/22 Onset of Symptoms Time: 11:00 Symptom Onset Unknown: No VTE Deep Vein Thrombosis/Pulmonary Embolism Present on Admission: No
[2022-10-20] MEDS: AZITHROMYCIN 500 MG in DEXTROSE 5% IN WATER 250 ML IV SCH (09:43)
[2022-10-20] MEDS: MULTIVIT,THER IRON,CA,FA & MIN 1 TABLET PO SCH (09:43)
--- NOTE | 2022-10-20 12:06 | Magnetic Resonance Report ---
CLINICAL INFORMATION: Acute left-sided weakness. History of CVA COMPARISON: None. TECHNIQUE:Sagittal T1 FLAIR, T2 FLAIR propeller, diffusion, and ADC axial images images were acquired. FINDINGS: The ventricles, sulci, fissures and cisterns are symmetrically enlarged compatible with moderate age-related atrophy. There are no extra-axial fluid collections or mass are appreciated. There are no regions of restricted diffusion to suggest an acute infarct no intracerebral hemorrhage. Scattered chronic senescent ischemic foci seen throughout the cerebral white matter. There is also a cluster of 5-6 small remote lacunar infarcts in the left subcortical frontal white matter near vertex. Moderate left mastoiditis appreciated IMPRESSION: No evidence of acute infarction or hemorrhage. Moderate atrophy with chronic ischemic changes in the cerebral white matter expected for age. A few remote lacunar infarcts noted in the subcortical left frontal white matter. Moderate left mastoiditis Interpreted and Authenticated by: Alejandro Serrato 10/20/22
[2022-10-20] MEDS ORDERED: FINASTERIDE 5 MG TABLET PO SCH (21:00)
[2022-10-20] MEDS ORDERED: ATORVASTATIN 40 MG TABLET PO SCH (21:00)
[2022-10-20] MEDS ORDERED: TAMSULOSIN 0.4 MG CAPSULE PO SCH (21:00)
[2022-10-21] MEDS: 0.9 % SODIUM CHLORIDE 10 ML SYRINGE IV SCH (05:06)
[2022-10-21] MEDS: 0.9 % SODIUM CHLORIDE 1,000 ML IV SCH ×2 (05:37→12:50)
[2022-10-21 06:47] LABS: Basophils # (Auto) 0.11 K/mcL (0.00-0.30); Basophils % (Auto) 1.8 % (0.0-2.0); Eosinophils # (Auto) 0.29 K/mcL (0.00-0.70); Eosinophils % (Auto) 4.7 % (0.0-7.0); Hematocrit 37.3 % (40.1-51.0); Lymphocytes # (Auto) 1.92 K/mcL (1.50-4.80); Lymphocytes % (Auto) 30.9 % (15.5-49.0); Mean Cell Volume 91.2 fL (80.0-100.0); Mean Corpuscular HGB Conc 32.2 g/dL (31.0-36.0); Mean Platelet Volume 10.3 fL (8.8-12.5); Monocytes # (Auto) 0.79 K/mcL (0.10-0.90); Monocytes % (Auto) 12.7 % (1.0-12.0); Neutrophils % (Auto) 43.3 % (38.0-78.0); Platelet Count 654 K/mcL (140-440); RBC 4.09 M/mcL (4.63-6.08); Red Cell Distribution Width 18.4 % (11.5-14.5); WBC 6.2 K/mcL (4.5-11.0)
[2022-10-21 07:07] LABS: ALT/SGPT 59 U/L (<40); AST/SGOT 42 U/L (<40); Albumin 3.6 gm/dL (3.2-5.2); Albumin/Globulin Ratio 1.6 (1.0-2.3); Alkaline Phosphatase 140 U/L (39-117); Bilirubin,Total 0.4 mg/dL (0.1-1.0); Blood Urea Nitrogen 14 mg/dL (8-23); Calcium 8.9 mg/dL (8.6-10.4); Carbon Dioxide 22 mmol/L (22-30); Chloride 112 mmol/L (96-108); Globulin 2.2 gm/dL (2.2-3.7); Glomerular Filtration Rate 86; Glucose 92 mg/dL (70-105)
[2022-10-21] MEDS: ENOXAPARIN 40 MG/0.4 ML SYRINGE SQ SCH (08:36)
[2022-10-21] MEDS: MULTIVIT,THER IRON,CA,FA & MIN 1 TABLET PO SCH (08:36)
[2022-10-21] MEDS: cefTRIAXone 1 GM VIAL IV SCH (08:36)
[2022-10-21] MEDS: DOCUSATE SODIUM 100 MG CAPSULE PO SCH (08:38)
[2022-10-21] MEDS ORDERED: CLOPIDOGREL 75 MG TABLET PO SCH (09:00)
[2022-10-21] MEDS ORDERED: SERTRALINE 50 MG TABLET PO SCH (09:00)
[2022-10-21] MEDS: AZITHROMYCIN 500 MG in DEXTROSE 5% IN WATER 250 ML IV SCH (10:16)
--- NOTE | 2022-10-21 11:16 | Discharge Summary ---
Discharge Provider Provider IMPORTANT FOLLOW-UP INFORMATION FOR PCP: Patient information: Note initiated : 10/21/22 at 11:13 am Service Date, if different from initiated Date: [] Patient: Farhad Horton 82 y/o M admitted on 10/19/22 for stroke symptoms, found unconscious, TIA, Sepsis,. Chief Complaint: [] Date of admission: 10/19/22 20:46 Discharge date: 10/21/22 Primary care physician: Alejandro Carr DO Attending physician on admission: Marcos Cooley Consults: 10/19/22 Consult to Physician [CONS] Stat Comment: Consulting Provider: Marcos Cooley Reason For Exam: Physician to Consult 10/19/22 16:07 Consult to Physician [CONS] Stat Comment: Consulting Provider: Telestroke-Gore Reason For Exam: Physician to Consult Attending physician on discharge: Marcos Cooley COURSE Hospital Course Hospital course: Mr. Horton is a 82 year old M history of stroke, BPH, presenting with 1 day history of acute onset left-sided weakness and lethargy. Last seen normal was at around 11 AM. At around 1230 when the caregiver check on the patient's, he was found to be reported more sleepy and also with increased left-sided weakne ss. 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 Patient does not remember any of the reported symptoms. When he was brought to our ED, he was already 5 hours since the onset of symptoms. It was reported by the family and caregiver that his symptoms already started to improve relative to the onset time. Patient right now denies having any pain or discomfort. He denies having any chest pain, palpitations, or shortness of breath. He denies any confusions, lethargy, or headaches. He is however complaining of dysuria. NIH stroke scale was 3 at ED presentations. Patient was found to have left-sided pronator drift, and left lower extremity weakness when he was asked to sit up on the bed. Vital signs significant for soft blood pressure with blood pressure as low as 89/52mmHg. Low grade fever Tmax 37.4. Labs significant for leukocytosis with WBC 14.1. Serum procalcitonin level 0.58. Lactic acid 3.2. UA suggesting the presence of urinary tract infection. CT of the head without contrast did not show any acute intracranial pathologies. CT angiogram of the head and the neck also did not found any hemodynamically significant stenosis. Admission request is called for stroke versus TIA and urinary infections. 10/20: Afebrile overnight. Cultures no growth today. Respiratory panel are negative. WBC down trended from 14.1-10.4 this morning. Chest x-ray showing small left basilar infiltrate. NIH stroke scale of this morning pending. Patient feels good right now, denies any pain or discomfort. He denies any shortness of breath. He denies any fever chills or diaphoresis. He denies any urinary symptoms. Add azithromycin for coverage of atypical pneumonia. Continue Rocephin for both pneumonia and urinary tract infections while waiting for culture result. MRI of the brain stroke protocol today. Physical therapy, Occupational Therapy, and speech therapy evaluation and treatment. Continue aspirin, Plavix, and statin for stroke secondary prevention's. Permissive hypertension for 48 hours. Overall condition still guarded. 10/21: Discharged to SNF. Rx given. Follow up with SNF MD. All questions were answered prior to patient being physically discharged. Discharge diagnosis: UTI, pneumonia Time Spent with Patient Time attestation: Total time spent providing and/or coordinating discharge services: Time spent: Less than 30 minutes EXAM Constitutional Vitals: Temp Pulse Resp BP Pulse Ox O2 Del Method 36.3 C 65 29 H 117/72 98 Room Air 10/21/22 04:01 10/21/22 10:23 10/21/22 10:10/21/22 10:01 10/21/22 10:10/20/22 16:01 General appearance: cooperative and no acute distress Head Head exam: Present atraumatic and normocephalic Eye Eye exam: Present EOMI and PERRL ENT ENT exam: Present mucous membranes moist, normal exam and normal external ear exam Neck Neck exam: Present normal inspection; Absent lymphadenopathy, tenderness or thyromegaly Respiratory Respiratory exam: Absent accessory muscle use, respiratory distress or wheezes Cardiovascular Cardiovascular exam: Present normal rate and rhythm; Absent JVD GI/Abdominal GI/Abdominal exam: Present normal bowel sounds and soft; Absent organomegaly or tenderness Rectal Rectal exam: Present deferred Extremities Exam Extremities exam: Present full ROM, normal capillary refill and normal inspection; Absent tenderness Neurological Exam Neurological exam: Present alert, CN II-XII intact and oriented X3; Absent motor sensory deficit Additional comments: Left arm pronator drift Psychiatric Psychiatric exam: Present normal affect and normal mood; Absent anxious or depressed Skin Skin exam: Present dry and intact Discharge Data Data Completed and Pending Labs on day of discharge: Labs from last 24 hours 10/21/22 10/21/22 05:39 05:39 WBC 6.2 RBC 4.09 L Hgb 12.0 L Hct 37.3 L MCV 91.2 MCH 29.3 MCHC 32.2 RDW 18.4 H Plt Count 654 H MPV 10.3 Immature Gran % (Auto) 6.6 H Neut % (Auto) 43.3 Lymph % (Auto) 30.9 [place] % (Auto) 12.7 H Eos % (Auto) 4.7 Baso % (Auto) 1.8 Lymph # (Auto) 1.92 [place] # (Auto) 0.79 Eos # (Auto) 0.29 Baso # (Auto) 0.11 Immature Gran # 0.41 H Absolute Neutrophils 2.69 Sodium 139 Potassium 4.2 Chloride 112 H Carbon Dioxide 22 Anion Gap 5.0 L BUN 14 Creatinine 0.7 GFR Calculation 86 Glucose 92 Calcium 8.9 Total Bilirubin 0.4 AST 42 H ALT 59 H Alkaline Phosphatase 140 H Total Protein 5.8 L Albumin 3.6 Globulin 2.2 Albumin/Globulin Ratio 1.6 Preliminary micro results at discharge 10/19/22 18:13 Blood Culture - Preliminary Blood 10/19/22 18:09 Blood Culture - Preliminary Blood Discharge Plan Patient/Caregiver Discharge Instructions Activity: increase activity as tolerated Diet: Regular Diet Instructions: Urinary Tract Infection in Men (GEN), Ischemic Stroke (GEN) Prescriptions: New amoxicillin-pot clavulanate [Augmentin XR] 1,000-62.5 mg tablet extended release 12 hr 1 tab PO BID Qty: 14 0RF Continued multivitamin Tablet 1 tab PO QDAY finasteride 5 mg tablet 5 mg PO QHS Qty: 90 3RF clopidogrel 75 mg tablet 75 mg PO DAILY Qty: 90 3RF sertraline 50 mg tablet 50 mg PO QDAY Qty: 90 3RF atorvastatin 40 mg Tablet 80 mg PO HS Qty: 60 0RF tamsulosin 0.4 mg capsule 0.8 mg PO QHS Follow Up Plan Follow up with: Alejandro Carr DO [Primary Care Provider] - (Your PCP will contact you to schedule a follow up appointment) Patient Disposition: Xfer SNF Prognosis: Fair Rehab Potential: Good I certify that the patient requires SNF services: Yes Overall status at discharge: patient is progressing back to baseline Discharge Orders: Discharge Order (Routine); Ordered 10/21/22 Ordered By: Marcos MATHEW VTE Deep Vein Thrombosis/Pulmonary Embolism Present on Admission: No
--- NOTE | 2022-10-24 09:11 | EKG ---
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 /[id number]
== END 2022-10-21 13:07 ==
LOC: ICU 15:47 → ED 15:47 → ICU 20:55
PROVIDERS: ADMIT Internal Medicine; ATTEND Internal Medicine